=== PATIENT | female | born 1955 | race Caucasian/White ===

== ENCOUNTER → 2016-12-02 17:00 | Outpatient (CLI) | payer MEDICARE ==
[2016-10-13 12:32] VITALS: BMI 33.7
[~2016-12-02 17:00] MED LIST: ALEVE220 MG PO; BACTRIM DS TABL1 TAB PO; BENADRYL25 MG PO; BUPROPION HCL100 M1 PO; CELEXA40 MG PO; ELIQUIS2.5 MG PO; GLUCOPHAGE1000 MG PO; HYDROCODONE-APA1 TAB PO; MAXALT10 MG PO; MIRALAX17 GM PO; MUPIROCIN22 GM TOPICAL; PERCOCET 10/3251 TA1 PO; TOPROL XL25 MG PO; ZESTORETIC 20-1 EACH PO; ZOCOR20 MG PO
== END | disposition home or self-care (01) ==
LOC: D.LABREF 17:00
DX: M25.551 Pain in right hip (principal)

== ENCOUNTER 2016-12-15 11:51 | Inpatient (IN) | payer MEDICARE ==
[2016-12-11 11:10] LABS: BASOPHILS 0.2 % (0.0-2.0); EOSINOPHILS 4.5 % (0-7); HEMATOCRIT 35.1 % (36.0-48.0); HEMOGLOBIN 10.8 g/dL (12-16); MCH 28.5 pg (26.0-34.0); MCHC 30.8 g/dL (31.0-37.0); MCV 92.6 fL (80.0-100.0); MEAN PLATELET VOLUME 10.9 fL (7.4-10.4); MONOCYTES 6.6 % (2-11); NEUTROPHILS 63.7 % (40-80); RBC 3.79 10x6/uL (4.00-5.40); RDW 15.1 % (11.5-14.5); WBC 5.1 10x3/uL (4.8-10.8)
[2016-12-11 11:11] LABS: PLATELET COUNT 180 10x3/uL (130-400)
[2016-12-11 11:18] LABS: APPEARANCE SLT CLOUDY (CLEAR); BACTERIA MODERATE /hpf (NONE SEEN); BILIRUBIN NEGATIVE (NEGATIVE); COLOR YELLOW (YELLOW); GLUCOSE NEGATIVE (NEGATIVE); KETONE NEGATIVE (NEGATIVE); LEUKOCYTE ESTERASE 2+ (NEGATIVE); MUCUS <1+ /lpf (NONE SEEN); NITRITE NEGATIVE (NEGATIVE); PROTEIN NEGATIVE (NEGATIVE); RED CELLS - URINE 0-5 /hpf (0-5); UROBILINOGEN NORMAL (NORMAL); WHITE CELLS - URINE 25-50 /hpf (0-5)
[2016-12-11 11:19] LABS: ANION GAP 11.3 mmol/L (8-16); CALCIUM 9.6 mg/dL (8.5-10.1); CARBON DIOXIDE 29.5 mmol/L (21.0-32.0); CREATININE - SERUM 1.1 mg/dL (0.6-1.3); POTASSIUM - SERUM 4.8 mmol/L (3.5-5.1)
[2016-12-11 11:20] LABS: APTT 27.6 SECONDS (22.8-39.4); INR 0.95 (0.85-1.17); PROTIME 12.5 SECONDS (11.6-15.0)
[~2016-12-15] VITALS: Ht 160 cm; Wt 89.5 kg
[2016-12-15 13:46] VITALS: BP 125/77; BMI 34.9
--- NOTE | 2016-12-15 14:20 | NUR ---
[address] DAVIS, NO NEW ORDERS RECEIVED.
[2016-12-15 18:30] VITALS: BP 128/76
--- NOTE | 2016-12-15 18:30 | NUR ---
RECEIVED TO ROOM 2211 FROM RECOVERY VIA BED. PT ALERT AND ORIENTED X4. VITAL SIGNS INITIATED PER POST PROCEDURE PROTOCOL. IV TO RIGHT HAND PATENT. SCD'S AND BED ALARM ON. PROVIDED PT WITH FRESH ICE WATER AND SANDWICH TRAY. INCENTIVE SPIROMETER AND CALL LIGHT IN REACH. WILL CONTINUE WITH PLAN OF CARE.
[2016-12-15 18:36] VITALS: BP 128/76; Ht 160 cm; Wt 89.5 kg
[2016-12-15 18:45] VITALS: BP 123/80
[2016-12-15 19:00] VITALS: BP 138/95
[2016-12-15 19:15] VITALS: BP 125/86
--- NOTE | 2016-12-16 01:14 | NUR ---
RESTING WITH EYES CLOSED, RESP WITH EASE, CL IN REACH
[2016-12-16 03:42] VITALS: BP 107/63
[2016-12-16 06:44] LABS: BASOPHILS 0.1 % (0.0-2.0); EOSINOPHILS 0.3 % (0-7); HEMATOCRIT 27.2 % (36.0-48.0); HEMOGLOBIN 8.4 g/dL (12-16); IMMATURE GRANULOCYTES 0.1 % (0-5); LYMPHOCYTES 14.8 % (15-50); MCH 28.4 pg (26.0-34.0); MCHC 30.9 g/dL (31.0-37.0); MCV 91.9 fL (80.0-100.0); MONOCYTES 10.5 % (2-11); NEUTROPHILS 74.2 % (40-80); PLATELET COUNT 175 10x3/uL (130-400); RBC 2.96 10x6/uL (4.00-5.40); RDW 15.2 % (11.5-14.5); WBC 7.8 10x3/uL (4.8-10.8)
[2016-12-16 07:07] LABS: ALBUMIN 2.7 g/dL (3.4-5.0); BILIRUBIN - TOTAL 0.4 mg/dL (0.2-1.3); CALCIUM 8.2 mg/dL (8.5-10.1); CARBON DIOXIDE 25.4 mmol/L (21.0-32.0); CREATININE - SERUM 1.1 mg/dL (0.6-1.3); POTASSIUM - SERUM 4.4 mmol/L (3.5-5.1); PROTEIN - SERUM 5.5 g/dL (6.4-8.2)
--- NOTE | 2016-12-16 07:36 | NUR ---
250 mL BLOODY DRAINAGE TAKEN FROM HEMOVAC DRAIN
--- NOTE | 2016-12-16 08:05 | NUR ---
PT SEEN AND ASSESSED. NO COMPLAINTS AT PRESENT. STATES RIGHT HIP NUMB. HEMOVAC NOTED WITH SMALL AMOUNT OF BLOODY DRAINAGE AND IS COMPRESSED. DRESSING TO RIGHT HIP CLEAN AND DRY WITH NEW BAG OF ICE APPLIED. TOES ARE PINK AND WARM. OXYGEN OFF AT THIS TIME. NO SOB NOTED OR VOICED. BED ALARM FOR SAFETY AND CALL LIGHT IN REACH
[2016-12-16 08:39] VITALS: BP 98/62
--- NOTE | 2016-12-16 11:14 | OP ---
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 PROCEDURE: Revision total hip arthroplasty. SURGEON: Mehreen Davis MD. ANESTHESIA: General. INTRAOPERATIVE COMPLICATIONS: None. SUMMARY OF PATHOLOGIC FINDINGS: The patient's cup, although it had 5 screws and was a large cluster hole Tritanium cup had completely loosened and migrated proximally. The stem was in overall good condition. IMPLANTS USED: A 60 mm catholic anatomic cup with a 36-mm HL liner, 15 cc of HydroSet with multiple screws. The 36-mm +10 head and a 36-mm Zero-liner and multiple screws. OPERATIVE SUMMARY IN DETAIL: After obtaining the appropriate preoperative orthopedic surgery consent as well as anesthetic consultation, evaluation and clearance, the patient was brought to the operating room and placed on the operating table in supine position. After adequate general laryngeal mask airway was administered, the patient was placed in left lateral decubitus position. All pressure points were well padded to include down leg peroneal pad as well as axillary roll. The patient was held firmly to the operating table using the vacuum pack suction system. Right lower extremity and hip were then prepped and draped in a routine sterile fashion. Previously utilized incision was utilized again. This was taken down to the level of the IT band. At this point, a very large seroma was noted. Cultures were taken at this and lower the short hip abductors were taken down and reflected anteriorly. The hip was dislocated quite easily. The femoral head was extracted using a tamp. At this point, the cup was obviously loose. The liner was removed. Serial and sequential removal of all screws was followed by simply pulling the liner out and this have not adhered at any point. Further cultures were taken at this time, this Gram stain was negative at the time of surgery. Serial and sequential inferior and low reaming was done to a size 59. The size 60 stabilizing cup was put into place. Multiple screws inside the cup as well as using the peripheral rim screws were utilized to stabilize the cup and the area superior and posterior was then backfilled with approximately 15 cc of HydroSet. After the HydroSet was allowed to harden, the polyethylene liner was snapped into place. The whole construct felt very firm and rigid. A trial was undertaken with the proximal femoral heads and it was felt that the +10 was the most appropriate to regain her length. A +10 head was tamped into place. The hip was reduced and taken through a range of motion and found to be excellent. Intraoperative radiograph showed good position and placement of all components and screws. The wound was copiously irrigated at this multiple points. Hip OPERATIVE REPORT [id number] BHAVIN ENRIQUEZ abductors were reattached anteriorly using a transosseous #5 Ethibond followed by #2 Ethibond for IT band closure, #1 Vicryl and skin wendy. Between the vastus lateralis and the IT band, a large drain was placed. It was stitched into place. The patient had had a hematoma in the past. Sterile dressings were applied. The patient was awakened and taken to recovery in stable condition. All final needle and sponge counts were correct. TRANSINT:[id number] Voice Confirmation ID: [id number] DOCUMENT ID: [id number] SUSAN CORTEZ, MEHREEN ADAMS at 1114 CC: [id number] DICTATION DATE: 12/15/161820 MATERIAL CLERK: 12/15/16 2322 ADM IN [facility] [address] [place] [address]
[2016-12-16 12:26] VITALS: BP 103/66
[2016-12-16 13:00] VITALS: BP 103/71
--- NOTE | 2016-12-16 14:48 | NUR ---
* Is the patient Alert and Oriented? Yes 0 * How many steps to enter\exit or inside your home? Ramp 0 * PCP Dr. Antonio 0 * Pharmacy [facility] 0 * Preadmission Environment Home with Family 0 * ADLs Independent 0 * Equipment Bedside Commode Cane Rolling Walker Shower Chair Wheelchair 0 * Other Equipment Power Chair 0 * List name and contact numbers for known caregivers / representatives who currently or will assist patient after discharge: Spouse - Du [phone] 0 * Community resources currently utilized Home Health 0 * Please name any agencies selected above. [place] 0 * Additional services required to return to the preadmission environment? No 0 * Can the patient safely return to the preadmission environment? Yes 0 * Has this patient been hospitalized within the prior 30 days at any hospital? No 12/16/2016 14:49 DCP: Discharge Planning Patient Name: BHAVIN ENRIQUEZ Admission Status: Elective Accout number: [id number] Admission Date: 12-15-2016 : 1955 Admission Diagnosis: Attending: JAIME Current LOS: 1 Anticipated DC Date: 12-18-2016 Planned Disposition: Home with Home Health Primary Insurance: [facility] Discharge Planning Comments: CM met with patient to assess dc plans/needs. Patient states she lives at home with her , Du. She is currently on service with [facility] - she states physical therapy was put on hold about 2 weeks ago but nursing was still seeing her & wants to resume services at discharge. She has all necessary DME. Anticipate dc /. CM will follow. Floor Cashier: Kanwal White
[2016-12-16 16:58] VITALS: BP 97/52
[2016-12-16 19:00] VITALS: BP 107/63
--- NOTE | 2016-12-16 19:35 | NUR ---
PATIENT A&Ox3, NO APPARENT DISTRESS, PAIN LEVEL .03/25 TO RIGHT HIP. REQUESTED SCD TO BE TAKEN OFF FOR COMFORT.
--- NOTE | 2016-12-16 23:45 | NUR ---
PATIENT A&Ox3, STABLE NO APPARENT DISTRESS, 11/25 TO RIGHT HIP. PATIENT SELF ADJUSTS FOR MOST PAIN CONTROL. BED IN LOWEST LOCKED POSITION, HOB AND FOB ELEVATED, CALL LIGHT WITHIN REACH, REQUEST SCD STAY OFF.
[2016-12-17] VITALS (22 sets, daily range): BP systolic 92–137; BP diastolic 60–78
--- NOTE | 2016-12-17 00:01 | NUR ---
RESTING WITH EYES CLOSED, NO DISTRESS NOTED, R HIP DSG IN PLACE, CL IN REACH
[2016-12-17 05:27] LABS: BASOPHILS 0.2 % (0.0-2.0); EOSINOPHILS 3.9 % (0-7); HEMATOCRIT 24.9 % (36.0-48.0); HEMOGLOBIN 8.1 g/dL (12-16); IMMATURE GRANULOCYTES 0.2 % (0-5); LYMPHOCYTES 16.8 % (15-50); MCH 29.7 pg (26.0-34.0); MCHC 32.5 g/dL (31.0-37.0); MCV 91.2 fL (80.0-100.0); MEAN PLATELET VOLUME 10.9 fL (7.4-10.4); MONOCYTES 7.9 % (2-11); RBC 2.73 10x6/uL (4.00-5.40); RDW 15.6 % (11.5-14.5)
[2016-12-17 05:41] LABS: PLATELET COUNT 132 10x3/uL (130-400); WBC 5.7 10x3/uL (4.8-10.8)
[2016-12-17 05:49] LABS: ALBUMIN 2.7 g/dL (3.4-5.0); ANION GAP 11.1 mmol/L (8-16); BILIRUBIN - TOTAL 0.25 mg/dL (0.2-1.3); CALCIUM 8.4 mg/dL (8.5-10.1); CARBON DIOXIDE 27.1 mmol/L (21.0-32.0); CREATININE - SERUM 1.1 mg/dL (0.6-1.3); POTASSIUM - SERUM 4.2 mmol/L (3.5-5.1); PROTEIN - SERUM 5.7 g/dL (6.4-8.2)
--- NOTE | 2016-12-17 10:45 | NUR ---
NO COMPLAINTS OF PAIN. STATES COMFORTABLE AT A 3/10 TO RIGHT HIP. DRESSING TO RIGHT HIP CLEAN DRY AND INTACT. GOOD PEDAL PULSE. CURRENTLY UP IN CHAIR AFTER THERAPY WITH 1ST UNIT OF [facility] STARTED. WANTS TO GO HOME LATER TODAY IF POSSIBLE. CALL LIGHT IN REACH
[2016-12-17 16:10] LABS: HEMATOCRIT 29.7 % (36.0-48.0); HEMOGLOBIN 9.4 g/dL (12-16)
--- NOTE | 2016-12-17 16:58 | NUR ---
PT WITH LOW GRADE FEVER AFTER BLOOD TRANSFUSION OF99.0. ABLE TO PULL [phone] PER INCENTIVE SPIROMETRY SEVERAL TIMES TODAY INCLUDING NOW. STATES NO CONCERNS
--- NOTE | 2016-12-17 19:00 | NUR ---
ASSISTED PATIENT TO BSC AND BACK TO BED. AAOX4. RR EVEN AND UNLABORED. 0 S/S OF DISTRESS. STATES PAIN IA A 3/10. IV TO RIGHT HAND PATENT WITH NO REDNESS OR SWELLING. DRESSING TO RIGHT HIP CDI. SCD'S IN ROOM BUT OFF. SRX2. BED LOW. CALL LIGHT WITHIN REACH.
--- NOTE | 2016-12-17 20:30 | NUR ---
ASSESSMENT COMPLETE. NIGHTTIME MEDS GIVEN. NORCO GIVEN FOR PAIN. WILL REASSESS.
[2016-12-18] VITALS: BP 136/78
--- NOTE | 2016-12-18 | NUR ---
PATIENT BLEEDING A LARGE AMOUNT FROM INCISION. OUTPATIENT CLERK STATED THAT SHE FOUND PATIENT IN POSITION WITH KNEES TO CHEST. REMOVED SOILED DRESSING. ALL GABRIEL IN PLACE WITH INCISION WELL APPROXIMATED. REDRESSED INCISION AND APPLIED ICE TO HIP. INSTRUCTED PATIENT NOT TO FLEX HIP. WILL CONTINUE TO MONITOR.
--- NOTE | 2016-12-18 03:05 | NUR ---
ASSISTED PATIENT TO BSC AND BACK TO BED. NORCO GIVEN FOR PAIN OF A 4/10. DRESSING TO HIP CDI.
[2016-12-18 04:00] VITALS: BP 134/72
[2016-12-18 05:51] LABS: BASOPHILS 0.2 % (0.0-2.0); EOSINOPHILS 5.6 % (0-7); HEMATOCRIT 28.7 % (36.0-48.0); HEMOGLOBIN 9.2 g/dL (12-16); IMMATURE GRANULOCYTES 0.5 % (0-5); LYMPHOCYTES 17.7 % (15-50); MCH 28.8 pg (26.0-34.0); MCHC 32.1 g/dL (31.0-37.0); MEAN PLATELET VOLUME 10.7 fL (7.4-10.4); MONOCYTES 9.9 % (2-11); NEUTROPHILS 66.1 % (40-80); PLATELET COUNT 137 10x3/uL (130-400); RBC 3.19 10x6/uL (4.00-5.40); RDW 15.5 % (11.5-14.5); WBC 5.9 10x3/uL (4.8-10.8)
[2016-12-18 06:25] LABS: ALBUMIN 2.6 g/dL (3.4-5.0); ANION GAP 15.1 mmol/L (8-16); BILIRUBIN - TOTAL 0.5 mg/dL (0.2-1.3); CALCIUM 8.5 mg/dL (8.5-10.1); CARBON DIOXIDE 27.1 mmol/L (21.0-32.0); CREATININE - SERUM 0.9 mg/dL (0.6-1.3); POTASSIUM - SERUM 4.2 mmol/L (3.5-5.1); PROTEIN - SERUM 5.2 g/dL (6.4-8.2)
--- NOTE | 2016-12-18 07:20 | NUR ---
PATIENT IS RESTING QUIETLY WITH EYES CLOSED. NO SIGNS OF DISTRESS NOTED. BED IN LOWEST POSITION, CALL LIGHT IN REACH. BED RAILS UP X'S 2. BED ALARM ON.
[2016-12-18 08:08] VITALS: BP 129/78
[2016-12-18] MEDS ORDERED: PERCOCET 10/3251 TA1 PO (08:26)
[2016-12-18] MEDS ORDERED: ELIQUIS2.5 MG PO (08:26)
--- NOTE | 2016-12-18 08:56 | NUR ---
12/18/2016 8:54 DCP: Discharge Planning Patient Name: BHAVIN ENRIQUEZ Encounter No: [id number] : 1955 Primary Insurance: [facility] Anticipated DC Date: 12-18-2016 Planned Disposition: Home with Home Health External Planned Provider: [facility] follow-up note: DC order rec'd. Patient and family in agreement with discharge plan. No changes to plan. Notified Fatoumata @ [facility] of DC.
--- NOTE | 2016-12-18 08:56 | NUR ---
PT SITTING UP IN THE CHAIR
--- NOTE | 2016-12-18 10:22 | NUR ---
PATIENT'S DRESSING HAS A LARGE AMOUNT OF BLOOD ON IT, REMOVED, SMALL AMOUNT OF BLOOD DRAINING FROM MID INCISION. APPLIED 4X4 GAUZED, TAPED WITH CLOTH TAPE. CALLED 'S OFFICE TO SPEAK WITH DUANE ABOUT D/C DRESSING. PREPRINT ANALYST STATED SHE IS WITH A PATIENT AND TOOK MY NAME AND NUMBER TO HAVE HER CALL ME WHEN SHE IS DONE.
--- NOTE | 2016-12-18 10:30 | NUR ---
SPOKE WITH DUANE, SHE STATED "PUT A PRESSURE DRESSING ON IT, AND I WILL PUT IN AN ORDER FOR HOME HEALTH TO CHANGE THE DRESSING DAILY."
--- NOTE | 2016-12-18 10:35 | NUR ---
APPLIED A PRESSURE DRESSING TO RIGHT HIP, D/C IV WITH CATH INTACT. DISCHARGE INSTRUCTIONS COMPLETED WITH PATIENT. PATIENT DENIES QUESTIONS AND VERBALIZED UNDERSTANDING. ASSISTED PATIENT GETTING DRESSED.
--- NOTE | 2016-12-18 11:56 | NUR ---
PATIENT LEFT VIA WHEELCHAIR WITH VOLUNTEER STAFF AND SON.
== END 2016-12-18 12:00 | disposition home health service (06) | DRG 467 ==
LOC: D.SDCHOLD 11:51 → D.MS 11:51 → D.SDCHOLD 13:15 → D.MS 14:33 → D.SDCHOLD 15:45 → D.MS 12-18 12:00
PROVIDERS: Family Medicine; ADMIT Orthopaedic Surgery
PROC: 0SP909Z Removal of Liner from Right Hip Joint, Open Approach (ICD-10-PCS; 2016-12-15)
PROC: 0SUA09Z Supplement Right Hip Joint, Acetabular Surface with Liner, Open Approach (ICD-10-PCS; 2016-12-15)
PROC: 0SP90JZ Removal of Synthetic Substitute from Right Hip Joint, Open Approach (ICD-10-PCS; 2016-12-15)
PROC: 0SR90JZ Replacement of Right Hip Joint with Synthetic Substitute, Open Approach (ICD-10-PCS; principal; 2016-12-15 14:30)
DX: T84.030A Mechanical loosening of internal right hip prosthetic joint, initial encounter (principal); D62 Acute posthemorrhagic anemia; M96.842 Postprocedural seroma of a musculoskeletal structure following a musculoskeletal system procedure; Y83.9 Surgical procedure, unspecified as the cause of abnormal reaction of the patient, or of later complication, without mention of misadventure at the time of the procedure; I10 Essential (primary) hypertension; E78.5 Hyperlipidemia, unspecified; E11.9 Type 2 diabetes mellitus without complications

== ENCOUNTER → 2017-02-04 12:49 | Outpatient (CLI) | payer MEDICARE ==
[2016-12-15 18:36] VITALS: BMI 34.9
[~2017-02-04 12:49] MED LIST changes: +VANCOMYCIN 1 GM/1 G1 IV
[2017-02-14 18:07] LABS: AEROBE ID Final report (())
== END | disposition home or self-care (01) ==
LOC: D.LABREF 12:49
PROVIDERS: Orthopaedic Surgery
DX: L02.415 Cutaneous abscess of right lower limb (principal)

== ENCOUNTER 2017-02-23 05:14 | Inpatient (IN) | payer MEDICARE ==
[2017-02-20 08:56] LABS: HEMATOCRIT 32.5 % (36.0-48.0); HEMOGLOBIN 9.9 g/dL (12-16); MCHC 30.5 g/dL (31.0-37.0); MCV 88.8 fL (80.0-100.0); MEAN PLATELET VOLUME 9.7 fL (7.4-10.4); RBC 3.66 10x6/uL (4.00-5.40); RDW 15.1 % (11.5-14.5); WBC 5.2 10x3/uL (4.8-10.8)
[2017-02-20 09:07] LABS: ANION GAP 16.3 mmol/L (8-16); CALCIUM 9.6 mg/dL (8.5-10.1); CARBON DIOXIDE 23.8 mmol/L (21.0-32.0); CREATININE - SERUM 1.2 mg/dL (0.6-1.3); POTASSIUM - SERUM 5.1 mmol/L (3.5-5.1)
[~2017-02-23] VITALS: Ht 160 cm; Wt 83.6 kg
[2017-02-23] VITALS (14 sets, daily range): BP systolic 78–117; BP diastolic 48–79; Ht 160 cm; Wt 83.6 kg
[~2017-02-23 05:14] MED LIST changes: -VANCOMYCIN 1 GM/1 G1 IV
--- NOTE | 2017-02-23 12:02 | NUR ---
PAGED 'S NURSE PRACTIONER TO NOTIFY HER OF PATIENT'S BP
--- NOTE | 2017-02-23 15:05 | NUR ---
Patient Name: BHAVIN ENRIQUEZ Admission Status: Elective Accout number: [id number] Admission Date: 02-23-2017 : 1955 Admission Diagnosis: Attending: JAIME Current LOS: 1 Anticipated DC Date: 02-27-2017 Planned Disposition: Home with Home Health Primary Insurance: [facility] Discharge Planning Comments: CM MET WITH PATIENT REGARDING D/C NEEDS AND PLANS. PATIENT STATED SHE LIVES WITH HER SPOUSE (YEYO) BUT HE IS IN THE HOSPITAL AT THIS TIME. PATIENT IS GOING TO GO TO HER DAUGHTERS HOUSE AT DISCHARGE (GEORGI CHU). PATIENT STATED SHE IS INDEPENDENT WITH HER CARE AND HAS A WALKER, WHEELCHAIR, POWER CHAIR, GLUCOMETER, BS COMMODE, AND SHOWER CHAIR AT HOME. PATIENTS PCP IS DR. WHITE AND PHARMACY IS [facility] AT THE [facility]. PATIENT IS CURRENT WITH [facility]. CM WILL CONTINUE TO FOLLOW PATIENT WITH D/C NEEDS AND PLANS. PCP DR. CINDY BRONSON AT [facility]- [phone] GEORGI CHU (DAUGHTER) [phone] OR [phone] Interior Design Faculty Member: Alma Rocha Is the patient Alert and Oriented? Yes 0 * How many steps to enter\exit or inside your home? RAMP 0 * PCP DR. WHITE 0 * Pharmacy [facility] 0 * Preadmission Environment Home with Family 0 * ADLs Independent 0 * Equipment Bedside Commode Glucometer Shower Chair Walker Wheelchair 0 * Other Equipment POWER WHEELCHAIR, 0 * List name and contact numbers for known caregivers / representatives who currently or will assist patient after discharge: GEORGI CHU (DAUGHTER) [phone] [place] [phone] PATIENTS YEYO IN HOSPITAL 0 * Community resources currently utilized Home Health 0 * Please name any agencies selected above. [facility] [phone] 0 * Additional services required to return to the preadmission environment? Yes 0 * Can the patient safely return to the preadmission environment? Yes 0 * Has this patient been hospitalized within the prior 30 days at any hospital? No 0 Grand Total: 0
--- NOTE | 2017-02-23 19:20 | NUR ---
RECIEVED SHIFT REPORT. PT IS LYING IN BED. ALERT AND ORIENTED AND ABLE TO VERBALIZE NEEDS. IV IS PATENT AND FLUIDS ARE RUNNING PER ORDER. PT IS ON BEDREST POST OP BUT IS ABLE TO TURN SELF IN BED FOR COMFORT AND SKIN CARE. PT STATES PAIN IS 3/10. DRESSING TO RIGHT HIP C/D/I WITH WOUND VAC PATENT. NO NEEDS ARE VERBALIZED AT THIS TIME. WILL CONTINUE TO MONITOR. SIDE RAILS ARE UP X 2. BED IS IN LOWEST POSITION. CALL LIGHT IS WITHIN REACH.
--- NOTE | 2017-02-23 21:08 | NUR ---
SHIFT ASSESSMENT COMPLETED. NIGHT MEDS GIVEN WITH NO PROBLEMS. PT C/O OF PAIN 01/23. ADMINISTERED PRESCRIBED PRN NORCO PER ORDER. DENIES FURTHER NEEDS. WILL MONITOR. SIDE RAILS X 2. BED LOW. CALL LIGHT IN REACH.
[2017-02-24] VITALS: BP 100/56
[2017-02-24 04:00] VITALS: BP 101/62
[2017-02-24 05:29] LABS: ANION GAP 13.1 mmol/L (8-16); CALCIUM 8.6 mg/dL (8.5-10.1); CARBON DIOXIDE 23.1 mmol/L (21.0-32.0); POTASSIUM - SERUM 4.2 mmol/L (3.5-5.1)
[2017-02-24 05:53] LABS: HEMATOCRIT 26.4 % (36.0-48.0); HEMOGLOBIN 8.2 g/dL (12-16); MCH 27.4 pg (26.0-34.0); MCHC 31.1 g/dL (31.0-37.0); MCV 88.3 fL (80.0-100.0); RBC 2.99 10x6/uL (4.00-5.40); RDW 15.2 % (11.5-14.5); WBC 4.3 10x3/uL (4.8-10.8)
--- NOTE | 2017-02-24 07:20 | NUR ---
PATIENT ALERT IN HIGH [place] POSITION WITH ELECTRONIC TABLET AT BEDSIDE. NO SIGNS OF DISTRESS NOTED. SIDE RAILS UP X2. BED IN LOW POSITION. CALL LIGHT IN REACH.
[2017-02-24 07:38] VITALS: BP 113/72
--- NOTE | 2017-02-24 07:40 | NUR ---
SITTING IN BED PLAYING A GAME ON TABLET, NO DISTRESS NOTED, REQUEST BEDSIDE COMMODE AND CHAIR, BED LOWEST POSITION, CALL LIGHT IN REACH, WILL CONTINUE TO MONITOR
--- NOTE | 2017-02-24 08:57 | NUR ---
02/24/2017 8:54 DCP: Discharge Planning Home Wound Vac order faxed to Sandhya at [facility]. CM will follow.
[2017-02-24 09:10] LABS: HEMOGLOBIN A1C 6.4 % (4.8-6.0)
[2017-02-24 11:54] VITALS: BP 102/75
[2017-02-24 15:49] VITALS: BP 108/60
[2017-02-24 20:00] VITALS: BP 113/72
[2017-02-25 04:00] VITALS: BP 118/72
--- NOTE | 2017-02-25 07:35 | NUR ---
CALLED PHARMACY AND SPOKE WITH RACIEL PHARMACIST ABOUT PATIENT'S VANCOMYOCIN. HOMERO RN STATED SHE SPOKE WITH AND SHE SAID THE PATIENT ONLY NEEDS 12 DOSES TOTAL OF THE VANCOMYOCIN AND THE 2 DOSES THE PATIENT RECIEVED FROM 'S ORDER WILL COUNT.
--- NOTE | 2017-02-25 08:20 | NUR ---
02/25/2017 8:19 DCP: Discharge Planning Signed Wound Vac order faxed to Sandhya @ [facility]. Waiting approval. CM will follow.
[2017-02-25 08:33] LABS: HEMATOCRIT 27.4 % (36.0-48.0); HEMOGLOBIN 8.7 g/dL (12-16); MCH 27.7 pg (26.0-34.0); MCHC 31.8 g/dL (31.0-37.0); MCV 87.3 fL (80.0-100.0); MEAN PLATELET VOLUME 9.7 fL (7.4-10.4); RBC 3.14 10x6/uL (4.00-5.40); WBC 3.8 10x3/uL (4.8-10.8)
[2017-02-25 08:53] LABS: ANION GAP 13.5 mmol/L (8-16); CALCIUM 8.7 mg/dL (8.5-10.1); CARBON DIOXIDE 23.9 mmol/L (21.0-32.0); CREATININE - SERUM 0.9 mg/dL (0.6-1.3); POTASSIUM - SERUM 4.4 mmol/L (3.5-5.1)
[2017-02-25 09:00] VITALS: BP 113/77
--- NOTE | 2017-02-25 10:31 | NUR ---
WOUND CARE: CALLED BY PRIMARY NURSE PIERCE ABOUT WOUND VAC MACHINE ALARMING (BLOCKAGE). ON ASSESSMENT NOTED NO CONTINUOUS PRESSURE WAS BEING ACHIEVED. REMOVED TRAC PAD AND DRAPE. A STRINGY BLOOD CLOT WAS NOTED AT TRAC PAD. REPLACED DRAPE AND ATTACHED NEW TRAC PAD. -125MMHG WAS IMMEDIATELY ACHIEVED AND VAC STOPPED ALARMING. I LEFT THE VAZ SPONGE THAT IS IN WOUND BED IN PLACE/ONLY REPLACED DRAPE AND TRAC PAD. DR. DAVIS IS TO CHANGE VAC DRESSING TOMORROW IN THE OR. WILL CONTINUE TO MONITOR.
[2017-02-25 13:34] VITALS: BP 111/76
--- NOTE | 2017-02-25 14:55 | NUR ---
PATIENT STATED SHE WANTS TO TALK TO AGAIN BEFORE AGREEING TO GET A PICC LINE PLACED.
--- NOTE | 2017-02-25 19:00 | NUR ---
BEDSIDE REPORT RECEIVED AND CARE OF PT ASSUMED. PT LYING IN SUPINE POSITION WATCHING TV. IV IN LEFT FA PATENT WITH NS INFUSING AT KVO. WOUND VAC IN PLACE ON RIGHT HIP, WELL COMPRESSED WITH NO OCCLUSION OR LEAK ALARMS. WILL MONITOR CLOSELY FOR NEEDS. CALL LIGHT WITHIN REACH.
[2017-02-25 20:00] VITALS: BP 127/78
--- NOTE | 2017-02-25 20:18 | NUR ---
HS MEDICATIONS GIVEN. FSBS 116 THIS CHECK REQUIRING NO COVERAGE PER SLIDING SCALE.
--- NOTE | 2017-02-25 20:30 | NUR ---
HS SNACK GIVEN: 2% MILK, GONZALES CRACKERS, AND SHEBERT.
[2017-02-26] VITALS (15 sets, daily range): BP systolic 89–126; BP diastolic 46–78
--- NOTE | 2017-02-26 01:15 | NUR ---
PT RESTING QUIETLY ON LEFT SIDE WITH UNLABORED BREATHING. WILL CONTINUE TO MONITOR FOR NEEDS.
--- NOTE | 2017-02-26 08:26 | NUR ---
02/26/2017 8:25 DCP: Discharge Planning Home IV Abx order faxed to Esperanza @ [facility]. Waiting return call.
--- NOTE | 2017-02-26 08:45 | NUR ---
PT SEEN AND ASSESSED. NPO FOR SURG THIS AFTERNOON. CONSENTS SIGNED. WOUND VAC NOTED RIGHT HIP WITH NO DRAINAGE NOTED. NO REDDNESS NOTED TO RIGHT HIP. ON ELIQUIS FOR DVT COVERAGE. CALL LIGHT IN REACH
--- NOTE | 2017-02-26 13:19 | NUR ---
02/26/2017 13:17 DCP: Discharge Planning Rec'd call from Sandhya with [facility] - home vac has been approved. Rec'd call from Archie with [facility] - they have ran patients insurance benefits for Daptomycin & patients OOP expensive is $8K. Notified Dr. Gomez - waiting additional orders. CM will follow.
--- NOTE | 2017-02-26 14:01 | NUR ---
PT TABLET WALLET AND SILVER COLORED RING PLACED IN BLUE BAG IN CLOSET AND COVERED WITH TOWEL
--- NOTE | 2017-02-26 15:30 | NUR ---
02/26/2017 15:29 DCP: Discharge Planning Home IV Vanc order rec'd - faxed to Archie @ [place]. Waiting insurance authorization.
--- NOTE | 2017-02-26 16:32 | NUR ---
TO SURG PER BED WITH WOUND VAC
--- NOTE | 2017-02-26 17:39 | OP ---
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 PROCEDURE: Excisional debridement of the right hip to include skin, subcutaneous tissue, portions of fat, fascia, muscle and bone. SURGEON: Mehreen Davis MD ANESTHESIA: General. INTRAOPERATIVE COMPLICATIONS: None. SUMMARY OF PATHOLOGIC FINDINGS: The tract went completely to the acetabulum and hip joint itself. OPERATIVE SUMMARY IN DETAIL: After obtaining the appropriate preoperative orthopedic surgery consent as well as anesthetic consultation, evaluation and clearance, the patient was brought to the operating room and placed on the operating table in supine position. After general laryngeal mask was administered, placed in left lateral decubitus position. All pressure points were well padded to include down leg peroneal nerve pad as well as axillary roll. The patient was held firmly to the operating room table using the vacuum suction system. Right upper extremity was then prepped and draped in a routine sterile fashion. Although the aperture was very small and was elongated to reveal a superficial pouch that measured approximately 10 cm x 5 cm x 3 cm deep. The anterior lateral recess, the wound did track normally to the patient's hip joint itself. Copious curettage, knife and rongeur, excision was carried out down to the level of the femoral neck. Curettage of the femoral neck itself was attempted to see if the bone had become soft, it had not. At this point, pulsatile lavage was carried out to completely irrigate the hip joint down to itself and one good bleeding bed was applied, wound VAC was placed. Note, two deep sponges were cut and placed down to the tract, followed by superficial sponge. Wound VAC was set at 125 mm of continuous medium suction. Good seal was achieved. The patient was awakened and taken to recovery room in stable condition. All final needle and sponge counts were correct. TRANSINT:[id number] Voice Confirmation ID: [id number] DOCUMENT ID: [id number] MEHREEN DAVIS MD at 1733 CC: [id number] DICTATION DATE: 02/23/17 1011 BEVELLER OPERATOR: 02/23/17 1418 ADM IN [facility] [address] [place] [address]
--- NOTE | 2017-02-26 18:40 | NUR ---
1814-RETURNED FROM SURG PER BED. WOUND VAC RECONNECTED TO BATTERY PACK. RIGHT HIP INCISION CLEAN DRY AND INTACT WITH WOUND VAC SPONGE IN PLACE. NO COMPLAINTS AT PRESENT
--- NOTE | 2017-02-26 19:00 | NUR ---
BEDSIDE REPORT RECEIVED AND CARE OF PT ASSUMED. PT LYING IN SUPINE POSITION WITH EYES CLOSED. ARROUSES TO VOICE. DENIES PAIN AT THIS TIME. WOUND VAC ON RIGHT HIP COMPRESSED, CLEAN AND DRY, WITH NO OCCLUSION OR LEAKAGE ALARMS. IV IN LEFT FA PATENT WITH 1/2 NS INFUSING AT 50 ML / HR. WILL MONITOR CLOSLEY FOR NEEDS. CALL LIGHT WITHIN REACH.
--- NOTE | 2017-02-26 22:00 | NUR ---
HS DIABETIC SNACK GIVEN: PUDDING, 2% MILK AND GONZALES CRACKERS. PT CONSUMED 100%.
--- NOTE | 2017-02-26 22:31 | NUR ---
HS MEDICATIONS GIVEN TO INCLUDE PERCOCET PER PRN ORDER, PER REQUEST FOR PAIN. SIDE RAILS UP X2 FOR SAFETY.
--- NOTE | 2017-02-26 23:23 | NUR ---
PT RESTING ON LEFT SIDE WITH EYES CLOSED AND UNLABORED BREATHING. WILL CONTINUE TO MONITOR FOR NEEDS.
--- NOTE | 2017-02-27 07:00 | NUR ---
PT WAS RECEIVED AT THE BEGINING OF THIS SHIFT IN BED AWAKE AND ORIENTED TO PERSON AND PLACE. NO SIGNS OF DISCOMFORT OR DISTRESS. VITAL SIGNS; TEMP. 97.7, PULSE 80, RESP. 20, B/P 115/74, O2 SAT. 96%. IV TO LEFT FOREARM IS PATENT WITH 1/2 NORMAL SALINE GOING AT 50CC/HR. PT IS TO GET A PICC LINE TODAY. FRANSICO CONTINUE TO MONITOR AND ASSIST PRN WITH ADL'S.
[2017-02-27 08:18] VITALS: BP 115/74
[2017-02-27 09:40] LABS: BASOPHILS 0.4 % (0.0-2.0); HEMATOCRIT 30.1 % (36.0-48.0); HEMOGLOBIN 9.5 g/dL (12-16); IMMATURE GRANULOCYTES 0.2 % (0-5); LYMPHOCYTES 21.8 % (15-50); MCH 27.5 pg (26.0-34.0); MCHC 31.6 g/dL (31.0-37.0); MCV 87.2 fL (80.0-100.0); MONOCYTES 8.8 % (2-11); NEUTROPHILS 64.8 % (40-80); PLATELET COUNT 203 10x3/uL (130-400); RBC 3.45 10x6/uL (4.00-5.40); RDW 15.1 % (11.5-14.5)
[2017-02-27] MEDS ORDERED: VANCOMYCIN 1 GM/1 G1 IV (09:47)
[2017-02-27] MEDS ORDERED: PERCOCET 10/3251 TA1 PO (09:47)
[2017-02-27] MEDS ORDERED: ELIQUIS2.5 MG PO (09:48)
[2017-02-27 09:50] LABS: ANION GAP 13.3 mmol/L (8-16); CALCIUM 8.7 mg/dL (8.5-10.1); CARBON DIOXIDE 24.9 mmol/L (21.0-32.0); POTASSIUM - SERUM 4.2 mmol/L (3.5-5.1)
[2017-02-27 09:51] LABS: C-REACTIVE PROTEIN 0.2 mg/dL (0.0-0.9)
--- NOTE | 2017-02-27 10:04 | NUR ---
02/27/2017 9:51 DCP: Discharge Planning Rec'd call from Archie with [facility] - Patient will have a copay of $148 for IV Vanc (entire therapy thru 04/05) & $9 per day for supplies. Notified Archie of planned dc for this afternoon. [facility] will coordinate delivery/first dose administration with [facility] for 1800.
[2017-02-27 10:56] LABS: ERYTHROCYTE SEDIMENTATION RATE 62 mm/hr (0-30)
[2017-02-27 13:02] VITALS: BP 115/65; BP 116/71
--- NOTE | 2017-02-27 13:26 | NUR ---
CM REASSESSMENT NOTE: PATIENT IS DISCHARGING TODAY HOME WITH HOME HEALTH-DAUGHTER IS DRIVING HER. CM REC. SEVERAL CALLS FROM [facility] AND THEY HAD QUESTIONS REGARDING PATIENTS FAMILY BEING ABLE TO BE TAUGHT HOW TO DO THE IV MEDICATION. PATIENT STATED SHE HAD A DAUGHTER, DAUGHTER IN LAW TO BE, AND NIECE THAT LIVES RIGHT BESIDE HER. [facility] THEN CALLED BACK AND STATED THEY WOULD NOT BE SERVICING PATIENT. PATIENT WAS UPSET AND CALLED [facility] AND THEY STILL DENIED HER EVEN THOUGH SHE IS CURRENT WITH THEM. PATIENT THEN CALLED INSURANCE COMPANY AND TALKED WITH THEM. CM HAD SPOKE WITH [facility] THEY COULD NOT DO IT. CM SPOKE WITH [facility] AND THEY CALLED CM BACK AND STATED THEY WOULD ACCEPT PATIENT. [facility] [place] WAS NOTIFIED ([facility]) AND CLINICALS AND ORDERS SENT TO [facility]. PATIENT HAS A WOUND VAC THAT IS NOT DUE FOR CHANGE UNTIL THURSDAY AND [facility] IS AWARE OF THAT ALSO. WILL CONTINUE TO FOLLOW PATIENT WITH D/C NEEDS AND PLANS. [facility]- [phone] OLYMPIADCOKO-[phone]
--- NOTE | 2017-02-27 13:30 | NUR ---
CM REASSESSMENT NOTE: IMM SERVED AND SIGNED. YAEL FOR [facility] SIGNED
--- NOTE | 2017-02-27 13:59 | NUR ---
PT HAD A PICC LINE PLACED TODAY. PT IS STABLE AND RESTING WITH EYES CLOSED. CALL LIGHT IS IN REACH.
--- NOTE | 2017-02-27 15:11 | NUR ---
PT IS BEING DISCHARGED TO HOME. STABLE CONDITION OBSERVED. DISCHARGE PAPERWORK SIGNED AND WILL WHEEL PT DOWN TO AWAITING VEHICLE WHEN SHE LEAVES.
[2017-03-01 17:07] LABS: AEROBE ID Final report (())
== END 2017-02-27 15:13 | disposition home health service (06) | DRG 498 ==
LOC: D.MS 05:14 → D.SDCHOLD 05:14 → D.MS 10:41 → D.SDCHOLD 10:45 → D.OPS 15:00 → EDSTATUS 15:00 → D.MS 02-27 15:13
PROVIDERS: Anesthesiology; Student in an Organized Health Care Education/Training Program; ADMIT Orthopaedic Surgery
PROC: 0QB70ZZ Excision of Left Upper Femur, Open Approach (ICD-10-PCS; principal; 2017-02-23 09:00)
PROC: 02HV33Z Insertion of Infusion Device into Superior Vena Cava, Percutaneous Approach (ICD-10-PCS; 2017-02-27)
PROC: B548ZZA Ultrasonography of Superior Vena Cava, Guidance (ICD-10-PCS; 2017-02-27)
DX: T84.51XA Infection and inflammatory reaction due to internal right hip prosthesis, initial encounter (principal); D62 Acute posthemorrhagic anemia; E11.9 Type 2 diabetes mellitus without complications; Z79.84 Long term (current) use of oral hypoglycemic drugs; E66.9 Obesity, unspecified; E78.5 Hyperlipidemia, unspecified; G43.909 Migraine, unspecified, not intractable, without status migrainosus; Z96.641 Presence of right artificial hip joint; Z68.32 Body mass index [BMI] 32.0-32.9, adult; I10 Essential (primary) hypertension

== ENCOUNTER → 2017-03-02 14:52 | Outpatient (CLI) | payer MEDICARE ==
[2017-02-23 17:26] VITALS: BMI 32.6
[~2017-03-02 14:52] MED LIST changes: +VANCOMYCIN 1 GM/1 G1 IV
[2017-03-02 15:03] LABS: BASOPHILS 0.2 % (0.0-2.0); EOSINOPHILS 7.9 % (0-7); HEMATOCRIT 30.8 % (36.0-48.0); HEMOGLOBIN 9.5 g/dL (12-16); IMMATURE GRANULOCYTES 0.2 % (0-5); LYMPHOCYTES 16.5 % (15-50); MCH 27.5 pg (26.0-34.0); MCHC 30.8 g/dL (31.0-37.0); MEAN PLATELET VOLUME 10.2 fL (7.4-10.4); MONOCYTES 8.8 % (2-11); NEUTROPHILS 66.4 % (40-80); PLATELET COUNT 203 10x3/uL (130-400); RBC 3.46 10x6/uL (4.00-5.40); RDW 15.8 % (11.5-14.5); WBC 4.8 10x3/uL (4.8-10.8)
[2017-03-02 15:22] LABS: CREATININE - SERUM 1.3 mg/dL (0.6-1.3); VANCOMYCIN - TROUGH 27.5 ug/mL (10.0-20.0)
[2017-03-02 17:45] LABS: ERYTHROCYTE SEDIMENTATION RATE 49 mm/hr (0-30)
== END | disposition home or self-care (01) ==
LOC: D.LABREF 14:52
PROVIDERS: Student in an Organized Health Care Education/Training Program
DX: T81.4XXA Infection following a procedure, initial encounter (principal); S72.002A Fracture of unspecified part of neck of left femur, initial encounter for closed fracture; S72.032 Displaced midcervical fracture of left femur; X58.XXXA Exposure to other specified factors, initial encounter; Y93.89 Activity, other specified; Y92.89 Other specified places as the place of occurrence of the external cause

== ENCOUNTER → 2017-03-12 11:22 | Outpatient (CLI) | payer MEDICARE ==
[2017-02-23 17:26] VITALS: BMI 32.6
[2017-03-12 13:31] LABS: CREATININE - SERUM 1.4 mg/dL (0.6-1.3); VANCOMYCIN - TROUGH 21.5 ug/mL (10.0-20.0)
== END | disposition home or self-care (01) ==
LOC: D.LABREF 11:22
PROVIDERS: Student in an Organized Health Care Education/Training Program
DX: T81.4XXA Infection following a procedure, initial encounter (principal)

== ENCOUNTER → 2017-03-17 13:46 | Outpatient (CLI) | payer MEDICARE ==
[2017-02-23 17:26] VITALS: BMI 32.6
[2017-03-17 14:24] LABS: CREATININE - SERUM 1.2 mg/dL (0.6-1.3); VANCOMYCIN - TROUGH 9.5 ug/mL (10.0-20.0)
== END | disposition home or self-care (01) ==
LOC: D.LABREF 13:46
PROVIDERS: Student in an Organized Health Care Education/Training Program
DX: T81.4XXA Infection following a procedure, initial encounter (principal); Z79.2 Long term (current) use of antibiotics; Z45.2 Encounter for adjustment and management of vascular access device

== ENCOUNTER → 2017-03-24 13:16 | Outpatient (CLI) | payer MEDICARE ==
[2017-02-23 17:26] VITALS: BMI 32.6
[2017-03-24 15:26] LABS: ERYTHROCYTE SEDIMENTATION RATE 48 mm/hr (0-30)
== END | disposition home or self-care (01) ==
LOC: D.LABREF 13:16
PROVIDERS: Student in an Organized Health Care Education/Training Program
DX: T84.51XA Infection and inflammatory reaction due to internal right hip prosthesis, initial encounter (principal); Z51.81 Encounter for therapeutic drug level monitoring; Z79.2 Long term (current) use of antibiotics

== ENCOUNTER → 2017-05-05 13:06 | Outpatient (CLI) | payer MEDICARE ==
[2017-02-23 17:26] VITALS: BMI 32.6
[2017-05-05 14:37] LABS: BASOPHILS 0.2 % (0-2); EOSINOPHILS 1.9 % (0-7); HEMATOCRIT 31.3 % (36.0-48.0); HEMOGLOBIN 9.5 g/dL (12-16); IMMATURE GRANULOCYTES 0.3 % (0-5); LYMPHOCYTES 17.6 % (15-50); MCH 26.5 pg (26.0-34.0); MCHC 30.4 g/dL (31.0-37.0); MCV 87.2 fL (80.0-100.0); MEAN PLATELET VOLUME 10.2 fL (7.4-10.4); MONOCYTES 7.5 % (2-11); NEUTROPHILS 72.5 % (40-80); RBC 3.59 10x6/uL (4.00-5.40); RDW 16.3 % (11.5-14.5); WBC 5.8 10x3/uL (4.8-10.8)
[2017-05-05 14:47] LABS: PLATELET COUNT 267 10x3/uL (130-400)
[2017-05-05 14:55] LABS: ALBUMIN 2.7 g/dL (3.4-5.0); ANION GAP 16.2 mmol/L (8-16); BILIRUBIN - TOTAL 0.11 mg/dL (0.2-1.3); C-REACTIVE PROTEIN 2.3 mg/dL (0.0-0.9); CALCIUM 8.9 mg/dL (8.5-10.1); CARBON DIOXIDE 25.9 mmol/L (21.0-32.0); CREATININE - SERUM 1.1 mg/dL (0.6-1.3); POTASSIUM - SERUM 4.1 mmol/L (3.5-5.1); PROTEIN - SERUM 6.7 g/dL (6.4-8.2)
[2017-05-05 15:54] LABS: ERYTHROCYTE SEDIMENTATION RATE 79 mm/hr (0-30)
== END | disposition home or self-care (01) ==
LOC: D.LABREF 13:06
PROVIDERS: Student in an Organized Health Care Education/Training Program
DX: T84.50XD Infection and inflammatory reaction due to unspecified internal joint prosthesis, subsequent encounter (principal); Z79.2 Long term (current) use of antibiotics

== ENCOUNTER 2017-05-12 10:28 | Inpatient (IN) | payer MEDICARE ==
[~2017-05-12] VITALS: Ht 160 cm; Wt 72.1 kg
[2017-05-12] MEDS ORDERED: HYDROCODONE-APA1 TAB PO (11:09)
[2017-05-12] MEDS ORDERED: COLACE100 MG PO (11:11)
[2017-05-12] MEDS ORDERED: AMRIX30 MG PO (11:12)
[2017-05-12] MEDS ORDERED: ADVIL100 M1 PO (11:14)
[2017-05-12 11:16] VITALS: BP 105/70; BMI 28.2
[2017-05-12 11:52] LABS: BASOPHILS 0.3 % (0-2); EOSINOPHILS 1.9 % (0-7); HEMATOCRIT 32.2 % (36.0-48.0); HEMOGLOBIN 9.8 g/dL (12-16); IMMATURE GRANULOCYTES 0.3 % (0-5); MCH 26.1 pg (26.0-34.0); MCHC 30.4 g/dL (31.0-37.0); MCV 85.9 fL (80.0-100.0); MONOCYTES 9.4 % (2-11); NEUTROPHILS 72.1 % (40-80); PLATELET COUNT 255 10x3/uL (130-400); RBC 3.75 10x6/uL (4.00-5.40); RDW 16.1 % (11.5-14.5); WBC 5.9 10x3/uL (4.8-10.8)
[2017-05-12 12:15] LABS: ALBUMIN 2.6 g/dL (3.4-5.0); BILIRUBIN - TOTAL 0.13 mg/dL (0.2-1.3); C-REACTIVE PROTEIN 2.4 mg/dL (0.0-0.9); CALCIUM 9.4 mg/dL (8.5-10.1); CARBON DIOXIDE 23.3 mmol/L (21.0-32.0); CREATININE - SERUM 1.2 mg/dL (0.6-1.3); POTASSIUM - SERUM 4.3 mmol/L (3.5-5.1); PROTEIN - SERUM 7.4 g/dL (6.4-8.2)
[2017-05-12 13:57] LABS: ERYTHROCYTE SEDIMENTATION RATE 104 mm/hr (0-30)
[2017-05-12 16:06] VITALS: BP 103/62
--- NOTE | 2017-05-12 19:40 | NUR ---
RECIEVED SHIFT REPORT. PT IS LYING IN BED. ALERT AND ORIENTED AND ABLE TO VERBALIZE NEEDS. IV IS PATENT AND SALINE LOC AT THIS TIME. PT IS AMBULATORY WITH ASSISTANCE OF WALKER. PT DENIES ANY PAIN AT THIS TIME. DRESSING TO RIGHT HIP C/D/I. NO NEEDS ARE VERBALIZED AT THIS TIME. WILL CONTINUE TO MONITOR. SIDE RAILS ARE UP X 2. BED IS IN LOWEST POSITION. CALL LIGHT IS WITHIN REACH.
[2017-05-12 20:00] VITALS: BP 108/67
--- NOTE | 2017-05-12 21:23 | NUR ---
SHIFT ASSESSMENT COMPLETED. FLUIDS HUNG PER ORDER. PT C/O PAIN 02/23. ADMINISTERED PRESCRIBED PRN NORCO PER ORDER. DENIES FURTHER NEEDS. WILL MONITOR. SIDE RAILS X 2. BED LOW. CALL LIGHT IN REACH.
[2017-05-13] VITALS: BP 105/70
[2017-05-13 04:00] VITALS: BP 110/66
--- NOTE | 2017-05-13 07:30 | NUR ---
PATIENT RECEIVED SITTING UP ON SIDE OF BED ALERT. NO SIGNS OF DISTRESS NOTED. DENIES NEEDS. SIDE RAILS UP X2. BED IN LOW POSITION. CALL LIGHT IN REACH.
--- NOTE | 2017-05-13 08:18 | NUR ---
PATIENT ALERT IN BED EATING BREAKFAST. NO SIGNS OF DISTRESS NOTED. FAMILY PRESENT. SCHEDULED MEDICATION ADMINISTERED. BED IN LOW POSITION. CALL LIGHT IN REACH. SIDE RAILS UP X2. DENIES NEEDS.
[2017-05-13 08:51] VITALS: BP 113/74
--- NOTE | 2017-05-13 09:24 | NUR ---
Patient Name: BHAVIN ENRIQUEZ Admission Status: Elective Accout number: [id number] Admission Date: 05-12-2017 : 1955 Admission Diagnosis: Attending: JAIME Current LOS: 1 Anticipated DC Date: 05-18-2017 Planned Disposition: Home with Home Health Primary Insurance: [facility] Discharge Planning Comments: CM MET WITH PATIENT AND FAMILY REGARDING D/C NEEDS AND PLANS. PATIENT STATED SHE LIVES WITH HER SPOUSE (YEYO) AND WILL RETURN THERE AT DISCHARGE. THERE IS A RAMP TO ENTER HOME AND NO STAIRS INSIDE PER PATIENT. PATIENT IS INDEPENDENT WITH HER CARE AND HAS A WHEELCHAIR, WALKER, BS COMMODE, SHOWER CHAIR, AND GLUCOMETER (CKS. 2X DAILY) AT HOME. PATIENTS PCP IS DR. WHITE AND PHARMACY IS AIYA[facility] AT THE [facility]. PATIENT IS CURRENT WITH [facility] AND DAUGHTER NOTIFIED THEM OF HER HOSPITAL ADMIT. CM WILL CONTINUE TO FOLLOW PATIENT WITH D/C NEEDS AND PLANS. PCP DR. CINDY [facility] AT [facility]- [phone] NAHUN (DAUGHTER IN LAW) [phone] [facility]- [phone] Cotton Weigher: Alma Rocha Is the patient Alert and Oriented? Yes 0 * How many steps to enter\exit or inside your home? RAMP 0 * PCP DR. WHITE 0 * Pharmacy [facility] 0 * Preadmission Environment Home with Family 0 * ADLs Independent 0 * Equipment Bedside Commode Glucometer Shower Chair Walker Wheelchair 0 * Other Equipment ALSO MOTORIZED WC 0 * List name and contact numbers for known caregivers / representatives who currently or will assist patient after discharge: NAHUN (DAUGHTER IN LAW) [phone] 0 * Community resources currently utilized Home Health 0 * Please name any agencies selected above. [facility] 0 * Additional services required to return to the preadmission environment? Yes 0 * Can the patient safely return to the preadmission environment? Yes 0 * Has this patient been hospitalized within the prior 30 days at any hospital? No 0 Grand Total: 0
--- NOTE | 2017-05-13 12:20 | NUR ---
PATIENT SITTING UP ON SIDE OF BED ALERT. NO SIGNS OF DISTRESS NOTED. BED IN LOW POSITION. CALL LIGHT IN REACH.
[2017-05-13 13:12] VITALS: BP 113/77
[2017-05-13 14:50] VITALS: BP 116/66
[2017-05-13 15:57] VITALS: Ht 160 cm; Wt 72.1 kg
--- NOTE | 2017-05-13 16:37 | NUR ---
ALERT IN BED. NO SIGNS OF DISTRESS NOTED. SCHEDULED MEDICATION ADMINISTERED. SIDE RAILS UP X2. BED IN LOW POSITION. CALL LIGHT IN REACH.
[2017-05-13 20:00] VITALS: BP 125/80
[2017-05-14] VITALS (15 sets, daily range): BP systolic 105–130; BP diastolic 59–84
--- NOTE | 2017-05-14 07:45 | NUR ---
PT ASSESSMENT COMPLETE PT AWAKE TO VERBAL STIMULI NO DISTRESS NOTED DENIES PAIN CALL LIGHT IN REACH
--- NOTE | 2017-05-14 15:30 | NUR ---
PT TO OR AT THIS TIME. FAMILY AT SIDE
--- NOTE | 2017-05-14 18:23 | NUR ---
PT ARRIVED WITH VANCOMYCIN 1GRAM IN 250ML NS INFUSING PER GRAVITY.
[2017-05-15] VITALS: BP 106/65
--- NOTE | 2017-05-15 02:26 | NUR ---
ASSESSED AT THE BEGINNING OF THE SHIFT. PT WAS JUST BACK FROM SURGERY AND HAS A DRESSING TO HER RIGHT HIP. SHE SLEPT FOR A WHILE AFTER SURGERY AND THEN WAS MORE ALERT. SHE HAS BEEN UP TO THE BEDSIDE COMMODE TO VOID AND DOES WELL WITH ASSIST. SHE HAS O2 AT 2 LITERS AND PAIN MEDS HAVE BEEN PROVIDED AND THEN A MORTGAGE COORDINATOR WAS SET UP ORDERED. THE BED IS LOW, RAILS UP X;S 2 WITH THE CALL LIGHT AT HAND.
[2017-05-15 04:00] VITALS: BP 112/67
[2017-05-15 05:15] LABS: HEMATOCRIT 27.6 % (36.0-48.0); HEMOGLOBIN 8.7 g/dL (12-16); MCH 26.6 pg (26.0-34.0); MCHC 31.5 g/dL (31.0-37.0); MCV 84.4 fL (80.0-100.0); MEAN PLATELET VOLUME 9.9 fL (7.4-10.4); RBC 3.27 10x6/uL (4.00-5.40); WBC 7.1 10x3/uL (4.8-10.8)
--- NOTE | 2017-05-15 07:30 | NUR ---
PT ASSESSMENT COMPLETE AWAKE AND ALERT ORINETD X 3 LUNGS CLAER HAS DRESSING NOTED TO RIGHT HIP FROM [employer]OV[employer] AND SPACER PLACEMENT HAS SANGUANOUS DRAINAGE NOTED IN COPIUS AMOUNT DRESSING CHANGED WITH 4X4 AND ABD COVERED WITH MEDIPORE TAPE. NOTED TO HAVE INCREASE TEMPERATURE OF 100.6 PT STATES SEVERE PAIN EVEN WITH FIELD ACCOUNT DIRECTOR DILAUDID
--- NOTE | 2017-05-15 07:50 | NUR ---
PATIENT IS RESTING QUIETLY WITH EYES CLOSED NO SIGNS OF DISTRESS NOTED. BED IN LOWEST POSITION, CALL LIGHT IN REACH. BED RAILS UP X'S 2.
[2017-05-15 08:42] VITALS: BP 107/57
[2017-05-15 12:52] VITALS: BP 100/59
--- NOTE | 2017-05-15 13:58 | NUR ---
Nutrition Follow Up: Pt is eating 32% meal avg on a regular diet. Wt stable. +BM 05/14/17. No new labs to review. Meds noted. Rec continue current diet. RD following.
[2017-05-15 16:45] VITALS: BP 108/67
--- NOTE | 2017-05-15 16:52 | NUR ---
PT HAS HAD ITCHING AND ELEVATED TEMPERATURE HOWVER NO FEVER THIS AFTERNOON STOPPED USING DILAUDID HAND BENDER THIS MORNING AND WAS GIVEN HYDROCODONE PER ORDER. PAIN MEDS STATED EFFECTIVE. WILL MONITOR.
[2017-05-15 20:00] VITALS: BP 125/65
[2017-05-16] VITALS: BP 133/72
--- NOTE | 2017-05-16 02:43 | NUR ---
ASSESSED AT THE BEGINNING OF THE SHIFT. PT IS ALERT AND ORIENTED, ABLE TO VERBALIZE NEEDS. THERE IS A NEW DRESSING TO THE RIGHT HIP WHICH IS DDRY AND INTACT AT THIS TIME. SHE IS GETTING UP TO THE BED SIDE COMMODE TO VOID AND DOES WELL WITH 1-2 PERSON ASSIST. BEFORE BED SHE WAS GIVEN MEDS FOR PAIN AND ITCHING. SHE FEELS LIKE THERE SOME MED MAKING HER BREAK OUT AND ITCH. SHE STATED IT WAS NOT HER NORCO BECAUSE SHE TAKES IT AT HOME. SHE IS NOT USING THE DILAUDID DUE TO THIS BUT IS GETTING WORSE AND FEELS NOW THAT IT MIGHT BE AN ANTIBOTIC. WE WILL LET MD KNOW IN AM SO HE CAN MAKE A DECISION. THE BED IS LOW, RAILS UP X'S 2 WITH THE CALL LIGHT AT HAND.
[2017-05-16 04:00] VITALS: BP 122/68
[2017-05-16 05:36] LABS: HEMATOCRIT 23.3 % (36.0-48.0); HEMOGLOBIN 7.6 g/dL (12-16); MCHC 32.6 g/dL (31.0-37.0); MCV 82.9 fL (80.0-100.0); MEAN PLATELET VOLUME 9.6 fL (7.4-10.4); RBC 2.81 10x6/uL (4.00-5.40); RDW 16.1 % (11.5-14.5)
[2017-05-16 08:35] VITALS: BP 116/61
[2017-05-16 10:36] LABS: ANION GAP 11.3 mmol/L (8-16); BILIRUBIN - TOTAL 0.25 mg/dL (0.2-1.3); CALCIUM 7.9 mg/dL (8.5-10.1); CARBON DIOXIDE 25.8 mmol/L (21.0-32.0); CREATININE - SERUM 1.3 mg/dL (0.6-1.3); POTASSIUM - SERUM 4.1 mmol/L (3.5-5.1); PROTEIN - SERUM 5.8 g/dL (6.4-8.2)
[2017-05-16 12:01] VITALS: BP 108/65
--- NOTE | 2017-05-16 14:45 | NUR ---
PATIENT FIRST UNIT OF BLOOD TRANSFUSING. IV INTACT. VS STABLE. NO COMPLAINTS OR SIGNS OF DISTRESS. CALL LIGHT WITHIN REACH.
[2017-05-16 16:13] VITALS: BP 128/78
--- NOTE | 2017-05-16 18:17 | NUR ---
2ND UNIT OF 2 PRBCS UP AT THIS ITME PER [facility] ENGINEER MONITOR FOR REACTION PT STATES THAT SHE NORMALLY RUNS A HIGHER BODY TEMPERATURE SO STARTING TEMP 100.2 IS NOT UNUSUAL FOR HER
--- NOTE | 2017-05-16 20:00 | NUR ---
LYING IN BED,WITHOUT NEEDS.CALL LIGHT IN REACH.DOOR OPEN
[2017-05-17 04:00] VITALS: BP 117/76
[2017-05-17 05:15] LABS: MCH 26.7 pg (26.0-34.0); MCHC 32.1 g/dL (31.0-37.0); MCV 83.3 fL (80.0-100.0); MEAN PLATELET VOLUME 9.6 fL (7.4-10.4); WBC 6.8 10x3/uL (4.8-10.8)
[2017-05-17 05:18] LABS: HEMOGLOBIN 9.3 g/dL (12-16); RBC 3.48 10x6/uL (4.00-5.40)
[2017-05-17 05:22] LABS: ANION GAP 12.2 mmol/L (8-16); CALCIUM 7.8 mg/dL (8.5-10.1); CARBON DIOXIDE 24.5 mmol/L (21.0-32.0); CREATININE - SERUM 1.1 mg/dL (0.6-1.3); POTASSIUM - SERUM 3.7 mmol/L (3.5-5.1)
--- NOTE | 2017-05-17 07:39 | NUR ---
AM ROUNDS - PT IN BED AND APPEARS TO BE SLEEPING WITH EQUAL AND NON LABORED BREATHING. PT HAS A RIGHT FA, 1/2 NS AT 50CC/HR. BED AT LOWEST POSITION, SIDE RAILS UP X2, CALL MARTINES IN USE/REACH. WILL CONTINUE TO MONITOR
[2017-05-17 08:14] VITALS: BP 118/68
--- NOTE | 2017-05-17 10:42 | NUR ---
MORNING MEDICATION GIVEN. NO NEEDS AT THIS TIME. WILL CONTINUE TO MONITOR
[2017-05-17 13:10] VITALS: BP 104/65
--- NOTE | 2017-05-17 13:12 | NUR ---
DRESSING CHANGE TO RIGHT HIP - GABRIEL INTACT. CLEAN AND WELL APPROXIMATED. BLOODY DRAINAGE NOTED. APPLYED 2 ABD PADS AND SECURED WITH TAPE. WILL CONTINUE TO MONITOR
--- NOTE | 2017-05-17 19:15 | NUR ---
RECIEVED SHIFT REPORT. PT IS LYING IN BED. ALERT AND ORIENTED AND ABLE TO VERBALIZE NEEDS. IV IS PATENT AND FLUIDS ARE RUNNING PER ORDER. PT REFUSES SCD'S. PT IS ABLE TO GET UP TO BEDSIDE COMMODE WITH ASSITANCE. DRESSING TO RIGHT HIP C/D/I. PT STATES PAIN IS 2/10. NO NEEDS ARE VERBALIZED AT THIS TIME. WILL CONTINUE TO MONITOR. SIDE RAILS ARE UP X 2. BED IS IN LOWEST POSITION. CALL LIGHT IS WITHIN REACH.
[2017-05-17 20:00] VITALS: BP 119/72
--- NOTE | 2017-05-17 20:06 | NUR ---
SHIFT ASSESSMENT COMPLETED. NIGHT MEDS GIVEN WITH NO PROBLEMS. NO NEEDS ARE VOICED. WILL MONITOR. SIDE RAILS X 2. BED LOW. CALL LIGHT IN REACH.
[2017-05-18 04:00] VITALS: BP 117/66
[2017-05-18 05:52] LABS: HEMATOCRIT 29.4 % (36.0-48.0); HEMOGLOBIN 9.5 g/dL (12-16); MCH 27.1 pg (26.0-34.0); MCHC 32.3 g/dL (31.0-37.0); MEAN PLATELET VOLUME 9.5 fL (7.4-10.4); RBC 3.5 10x6/uL (4.00-5.40); RDW 16.2 % (11.5-14.5); WBC 5.6 10x3/uL (4.8-10.8)
[2017-05-18 06:02] LABS: ANION GAP 13.3 mmol/L (8-16); CALCIUM 8.2 mg/dL (8.5-10.1); CARBON DIOXIDE 23.5 mmol/L (21.0-32.0); CREATININE - SERUM 0.9 mg/dL (0.6-1.3); POTASSIUM - SERUM 3.8 mmol/L (3.5-5.1)
--- NOTE | 2017-05-18 07:00 | NUR ---
PT REC'D FROM [facility]. RESTING IN BED WITH EYES CLOSED. NO SIGNS OF DISTRESS. RESP EVEN AND UNLABORED. BED LOW, CALL LIGHT IN REACH, DENIES NEEDS. CPOC.
[2017-05-18 09:28] VITALS: BP 137/68
[2017-05-18 12:16] VITALS: BP 112/75
--- NOTE | 2017-05-18 13:40 | NUR ---
PT RESTING IN BED WITH EYES CLOSED, NO VISABLE SIGNS OF PAIN OR DISCOMFORT NOTED. BED IN LOW POSITION AND CALL LIGHT WITHIN REACH. WILL CONTINUE TO MONITOR.
--- NOTE | 2017-05-18 14:34 | NUR ---
DRESSING TO R HIP CHANGED PER PT REQUEST. AQUALCEL DRESSING APPLIED. PRN PAIN MEDICATION AND MUSCLE RELAXER ADMINISTERED PER PT REQUEST. REPOSITIONED UP IN BED. BED LOW, CALL LIGHT IN REACH, DENIES NEEDS. CPOC.
[2017-05-18 16:01] VITALS: BP 112/64
[2017-05-18 19:00] VITALS: BP 112/69
--- NOTE | 2017-05-18 19:40 | NUR ---
RECIEVED SHIFT REPORT. PT IS LYING IN BED. ALERT AND ORIENTED AND ABLE TO VERBALIZE NEEDS. IV IS PATENT AND FLUIDS ARE RUNNING PER ORDER. PT REFUSES SCD'S. PT IS AMBULATORY WITH ASSISTANCE. DRESSING TO RIGHT HIP C/D/I. PT STATES PAIN IS 5/10. ISOLATION PRECAUTIONS IN PLACE. NO NEEDS ARE VERBALIZED AT THIS TIME. WILL CONTINUE TO MONITOR. SIDE RAILS ARE UP X 2. BED IS IN LOWEST POSITION. CALL LIGHT IS WITHIN REACH.
--- NOTE | 2017-05-18 20:18 | NUR ---
SHIFT ASSESSMENT COMPLETED. NIGHT MEDS GIVEN WITH NO PROBLEMS. PT C/O PAIN 03/25. ADMINISTERED PRESCRIBED PRN NORCO PER ORDER. NO FURTHER NEEDS VOICED AT THIS TIME. WILL MONITOR. SIDE RAILS X 2. BED LOW. CALL LIGHT IN REACH.
[2017-05-19 04:00] VITALS: BP 116/78
[2017-05-19 07:17] LABS: HEMATOCRIT 30.3 % (36.0-48.0); HEMOGLOBIN 9.7 g/dL (12-16); MCV 84.4 fL (80.0-100.0); MEAN PLATELET VOLUME 9.4 fL (7.4-10.4); RBC 3.59 10x6/uL (4.00-5.40); RDW 16.4 % (11.5-14.5)
[2017-05-19 07:43] LABS: ANION GAP 14.1 mmol/L (8-16); CALCIUM 8.5 mg/dL (8.5-10.1); CARBON DIOXIDE 25.5 mmol/L (21.0-32.0); POTASSIUM - SERUM 3.6 mmol/L (3.5-5.1)
--- NOTE | 2017-05-19 08:41 | NUR ---
MORNING MEDS PASSED AT THIS TIME. PRN MUSCLE RELAXER AND BENADRYL ADMINISTERED PER PT REQUEST. BED LOW, CALL LIGHT IN REACH, DENIES NEEDS. CPOC.
[2017-05-19 08:54] VITALS: BP 128/72
--- NOTE | 2017-05-19 10:54 | NUR ---
PT HERE FOR RIGHT INFECTED HIP FOR THIS VISIT. PT AOX4 RESP EVEN AND NONLABORED PT HAS RIGHT FOREARM PATENT AND INTACT AT THIS TIME PT DENIES NEEDS AT THIS TIME. SRX2 BED AT LOWEST SETTING CALL LIGHT WITHIN REACH WILL CONTINUE TO MONITOR
--- NOTE | 2017-05-19 12:00 | NUR ---
DRESSING TO R HIP CHANGED PER PT REQUEST. 4X4'S, 2 ABD PADS, AND METAPORE TAPE APPLIED TO FORM PRESSURE DRESSING.
--- NOTE | 2017-05-19 14:10 | NUR ---
PRN PAIN MEDICATION ADMINISTERED PER PT COMPLAINTS OF 6/10 R HIP PAIN. WILL REASSESS. PT REPOSITIONED UP IN BED WELL.
[2017-05-19 19:00] VITALS: BP 105/70
--- NOTE | 2017-05-19 19:25 | NUR ---
RECIEVED SHIFT REPORT. PT IS LYING IN BED. ALERT AND ORIENTED AND ABLE TO VERBALIZE NEEDS. IV IS PATENT AND FLUIDS ARE RUNNING PER ORDER. PT IS AMBULATORY WITH ASSISTANCE. DRESSING TO RIGHT HIP C/D/I. PT STATES PAIN IS 4/10. NO NEEDS ARE VERBALIZED AT THIS TIME. WILL CONTINUE TO MONITOR. SIDE RAILS ARE UP X 2. BED IS IN LOWEST POSITION. CALL LIGHT IS WITHIN REACH.
--- NOTE | 2017-05-19 20:13 | NUR ---
SHIFT ASSESSMENT COMPLETED. NIGHT MEDS GIVEN WITH NO PROBLEMS. PT C/O PAIN 02/23. ADMINISTERED PRESCRIBED PRN NORCO PER ORDER. DENIES FURTHER NEEDS. WILL MONITOR. SIDE RAILS X 2. BED LOW. CALL LIGHT IN REACH.
[2017-05-20 04:00] VITALS: BP 128/75
[2017-05-20 05:16] LABS: HEMATOCRIT 29.1 % (36.0-48.0); HEMOGLOBIN 9.3 g/dL (12-16); MCV 84.6 fL (80.0-100.0); MEAN PLATELET VOLUME 9.5 fL (7.4-10.4); RBC 3.44 10x6/uL (4.00-5.40); RDW 16.5 % (11.5-14.5); WBC 6.1 10x3/uL (4.8-10.8)
[2017-05-20 05:31] LABS: ANION GAP 12.4 mmol/L (8-16); CALCIUM 8.5 mg/dL (8.5-10.1); CARBON DIOXIDE 26.6 mmol/L (21.0-32.0)
--- NOTE | 2017-05-20 07:15 | NUR ---
REPORT RECEIVED FROM REGISTERED NURSE MATERNITY NURSE. CALL LIGHT IN REACH.
[2017-05-20] MEDS ORDERED: FLAGYL500 MG PO (08:24)
[2017-05-20] MEDS ORDERED: ZANAFLEX4 MG PO (08:25)
[2017-05-20] MEDS ORDERED: ELIQUIS2.5 MG PO (08:25)
[2017-05-20] MEDS ORDERED: HYDROCODONE-APA1 TAB PO (08:25)
[2017-05-20] MEDS ORDERED: CUBICIN500 MG IV (08:26)
[2017-05-20 09:00] VITALS: BP 125/78
--- NOTE | 2017-05-20 09:47 | NUR ---
ASSESSMENT COMPLETED. AM MEDS ADMINISTERED. NORCO PO. REQUESTED 2 OG THEM. REFUSES SCDs. BED ALARM ON. CALL LIGHT IN REACH. WILL CONTINUE WITH PLAN OF CARE.
--- NOTE | 2017-05-20 11:12 | NUR ---
SHIRLENE PO. STATES PAIN IS DOWN TO A 3. SERVOMECHANISM ASSEMBLER IN ROOM GIVING BED BATH AND CHANGING LINENS. CALL LIGHT IN REACH.
--- NOTE | 2017-05-20 12:22 | NUR ---
KEN BLAIR, IN ROOM FOR PICC LINE PLACEMENT.
[2017-05-20 12:31] VITALS: BP 94/58
--- NOTE | 2017-05-20 14:06 | NUR ---
NORCO 2 PO PER C/O PAIN. FLAGYL PO. CALL LIGHT IN REACH.
--- NOTE | 2017-05-20 15:30 | NUR ---
CM REASSESSMENT NOTE: ABX ORDER SENT TO [place]. CM REC. CALL AND THEY ARE HAVING TROUBLE WITH INSURANCE AND IT WILL BE IN AM BEFORE THEY KNOW ANYTHING. CM SPOKE TO PATIENT AND FAMILY REGARDING THIS MATTER.
--- NOTE | 2017-05-20 16:20 | NUR ---
GIANA IN ROOM. NO NEEDS VOICED AT THIS TIME. CALL LIGHT IN REACH.
[2017-05-20 17:11] VITALS: BP 128/74
--- NOTE | 2017-05-20 18:00 | NUR ---
ON AND OFF BEDPAN. DRSG TO SHOULDER CHANGED. NORCO PO WITH EVENING MEDS. NO CHANGES IN INITIAL ASSESSMENT. STILL REFUSES SCDs. BED ALARM ON. CALL LIGHT IN REACH. WILL CONTINUE WITH PLAN OF CARE.
--- NOTE | 2017-05-20 19:40 | NUR ---
RECIEVED SHIFT REPORT. PT IS LYING IN BED. ALERT AND ORIENTED AND ABLE TO VERBALIZE NEEDS. IV IS PATENT AND FLUIDS ARE RUNNING PER ORDER. PT IS AMBULATORY WITH ASSISTANCE. DRESSING TO RIGHT HIP C/D/I. PT STATES PAIN IS 2/10. PT REFUSES SCD'S. NO NEEDS ARE VERBALIZED AT THIS TIME. WILL CONTINUE TO MONITOR. SIDE RAILS ARE UP X 2. BED IS IN LOWEST POSITION. CALL LIGHT IS WITHIN REACH.
[2017-05-20 20:00] VITALS: BP 126/73
--- NOTE | 2017-05-20 20:36 | NUR ---
SHIFT ASSESSMENT COMPLETED. NIGHT MEDS GIVEN WITH NO PROBLEMS. NO NEEDS ARE VOICED. WILL MONITOR. SIDE RAILS X 2. BED LOW. CALL LIGHT IN REACH.
[2017-05-21] VITALS: BP 132/80
[2017-05-21 04:00] VITALS: BP 133/70
[2017-05-21 05:33] LABS: HEMATOCRIT 30.8 % (36.0-48.0); HEMOGLOBIN 9.6 g/dL (12-16); MCH 26.5 pg (26.0-34.0); MCHC 31.2 g/dL (31.0-37.0); MCV 85.1 fL (80.0-100.0); MEAN PLATELET VOLUME 9.3 fL (7.4-10.4); RBC 3.62 10x6/uL (4.00-5.40); RDW 16.2 % (11.5-14.5); WBC 7.4 10x3/uL (4.8-10.8)
[2017-05-21 05:48] LABS: ANION GAP 13.3 mmol/L (8-16); CALCIUM 8.6 mg/dL (8.5-10.1); CARBON DIOXIDE 26.6 mmol/L (21.0-32.0); POTASSIUM - SERUM 3.9 mmol/L (3.5-5.1)
--- NOTE | 2017-05-21 08:00 | NUR ---
PT AOX4 RESP EVEN AND NONLABORED PT DENIES NEEDS AT THIS TIME IV TO RIGHT FOREARM PATENT AND INTACT SRX2 BED AT LOWEST SETTING CALL LIGHT WITHIN REACH WILL CONTINUE TO MONITOR
[2017-05-21 09:27] VITALS: BP 149/85
[2017-05-21 13:20] VITALS: BP 161/78
--- NOTE | 2017-05-21 14:25 | NUR ---
NUTRITION MONITORING & EVAL CHART REVIEWED, PT REMAINS IN ISOLATION. REG DIET WITH 75% INTAKE RECENT MEALS. RD FOLLOWING
[2017-05-21 16:40] VITALS: BP 126/84
--- NOTE | 2017-05-21 16:54 | NUR ---
CM REASSESSMENT NOTE: RED NORBERTO CALLED ABX WILL BE 16,000. CM CALLED [facility]ATH[facility] TOM[facility] TO SEE ABOUT OP ABX THERAPY AND SHE STATED SHE WOULD LET CM KNOW SOON SHE HAS ANSWER.
[2017-05-21 18:08] LABS: AEROBE ID Final report (())
[2017-05-21 20:00] VITALS: BP 130/73
--- NOTE | 2017-05-21 20:38 | NUR ---
RECIEVED PT ON WALKING ROUNDS REPORT RECIEVED AND CARE OF PT TRANSFERED. AWAKE AND ALERT ORINETD X 3 LUNGS CLAER BILAT DRESSING INTACT TO RIGHT HIP CLEAN AND DRY. CALL LIGHT INREACH SIDE RAILS UP X 2 VOICES ALL NEEDS TO STAFF SEE FLOW SHEET FOR COMPLETE ASSESSMENT.
--- NOTE | 2017-05-21 23:23 | NUR ---
RN NOTE: PT AWAKE WATCHING TV IN LOW HOPKINS'S POSITION. IV IN RIGHT WRIST PATENT WITH 1/2 NS INFUSING AT 35 ML / HR. LEFT PICC LINE SALINE LOCKED, WITH CLEAN DRESSING. WILL CONTINUE TO MONITOR FOR NEEDS. CALL LIGHT WITHIN REACH.
[2017-05-22] VITALS: BP 143/107
--- NOTE | 2017-05-22 02:22 | NUR ---
PT RESTING IN BED VOIDS TO BED GASPAR NEEDED PAIN MEDS PER REQUEST GIVEN. PT VOICES ALL NEEDS TO STAFF.
[2017-05-22 04:00] VITALS: BP 134/75
--- NOTE | 2017-05-22 05:36 | NUR ---
SLEEPING IN BED WITH EYES CLOSED RESPS EVEN AND NON LABORED. CALL LIGHT IN REACH.
[2017-05-22 06:01] LABS: HEMATOCRIT 28.8 % (36.0-48.0); MCH 26.7 pg (26.0-34.0); MCHC 31.3 g/dL (31.0-37.0); MCV 85.5 fL (80.0-100.0); MEAN PLATELET VOLUME 9.4 fL (7.4-10.4); RBC 3.37 10x6/uL (4.00-5.40); RDW 16.2 % (11.5-14.5); WBC 8.8 10x3/uL (4.8-10.8)
[2017-05-22 06:14] LABS: ANION GAP 12.1 mmol/L (8-16); CALCIUM 8.4 mg/dL (8.5-10.1); CREATININE - SERUM 1.1 mg/dL (0.6-1.3); POTASSIUM - SERUM 4.1 mmol/L (3.5-5.1)
--- NOTE | 2017-05-22 08:00 | NUR ---
PT AOX4 RESP EVEN AND NONLABORED PT DENIES NEEDS AT THIS TIME IV TO RIGHT FOREARM PATENT AND INTACT. SRX2 BED AT LOWEST SETTING CALL LIGHT WITHIN REACH WILL CONTINUE TO MONITOR
[2017-05-22 08:44] VITALS: BP 158/90
[2017-05-22] MEDS ORDERED: PERCOCET 10/3251 TA1 PO (10:18)
--- NOTE | 2017-05-22 11:08 | NUR ---
CM REASSESSMENT NOTE: CM REC. CALL FROM [facility] AND PATIENT HAS BEEN APPROVED FOR OP ABX. THERAPY. MED ORDER WAS FAXED TO [facility]. PATIENT WILL REC. HER DOSE TODAY IN HOSPITAL AND THEN D/C HOME (CURRENT WITH [facility]). PATIENT WILL THEN GO TO ER FOR THE WEEKEND TO REC. HER ABX. CM CALLED ESAU IN OP AND SHE STATED TO HAVE PATIENT COME AROUND 1:00 FOR HER ABX. ON THURSDAY AND THEY WILL SET TIMES FROM THEN ON OUT. THIS WAS EXPLAINED TO PATIENT AND CM WILL SPEAK WITH DAUGHTERS WHEN THEY ARRIVE TO ROOM.
[2017-05-22 12:40] VITALS: BP 112/75
--- NOTE | 2017-05-22 16:58 | NUR ---
PT GIVEN PAPER AND VERBAL DISCHARGE INSTRUCTIONS AT THIS TIME WITH 4 PAPER PRESCRIPTIONS HANDED AT THIS TIME. IV TO RIGHT FOREARM PATENT DISCONTINUED WITH CATHETER INTACT AT THIS TIME. PT TAKEN VIA WHEELCHAIR VIA PRIVATE VEHICLE AT THIS TIME
== END 2017-05-22 17:05 | disposition home health service (06) | DRG 464 ==
LOC: D.MS 10:28
PROVIDERS: ADMIT Orthopaedic Surgery
PROC: 0SP90JZ Removal of Synthetic Substitute from Right Hip Joint, Open Approach (ICD-10-PCS; principal; 2017-05-14 13:00)
PROC: 0SH908Z Insertion of Spacer into Right Hip Joint, Open Approach (ICD-10-PCS; 2017-05-14 13:00)
PROC: 02HV33Z Insertion of Infusion Device into Superior Vena Cava, Percutaneous Approach (ICD-10-PCS; 2017-05-20)
PROC: B548ZZA Ultrasonography of Superior Vena Cava, Guidance (ICD-10-PCS; 2017-05-20)
DX: T84.51XA Infection and inflammatory reaction due to internal right hip prosthesis, initial encounter (principal); D62 Acute posthemorrhagic anemia; E78.5 Hyperlipidemia, unspecified; E11.9 Type 2 diabetes mellitus without complications; Z79.84 Long term (current) use of oral hypoglycemic drugs; K21.9 Gastro-esophageal reflux disease without esophagitis; R21 Rash and other nonspecific skin eruption

== ENCOUNTER 2017-05-25 13:01 | Outpatient (CLI) | payer MEDICARE ==
[~2017-05-25] VITALS: Ht 160 cm; Wt 78.0 kg
[~2017-05-25 13:01] MED LIST changes: +ADVIL100 M1 PO; +AMRIX30 MG PO; +COLACE100 MG PO; +CUBICIN500 MG IV; +FLAGYL500 MG PO; +ZANAFLEX4 MG PO
[2017-05-25 14:00] VITALS: BP 97/43; Ht 160 cm; Wt 78.0 kg
[2017-05-25 15:13] LABS: BASOPHILS 0.3 % (0-2); EOSINOPHILS 4.4 % (0-7); HEMATOCRIT 29.9 % (36.0-48.0); HEMOGLOBIN 9.1 g/dL (12-16); IMMATURE GRANULOCYTES 1.9 % (0-5); LYMPHOCYTES 16.4 % (15-50); MCH 26.7 pg (26.0-34.0); MCHC 30.4 g/dL (31.0-37.0); MCV 87.7 fL (80.0-100.0); MEAN PLATELET VOLUME 9.3 fL (7.4-10.4); MONOCYTES 8.6 % (2-11); NEUTROPHILS 68.4 % (40-80); PLATELET COUNT 309 10x3/uL (130-400); RBC 3.41 10x6/uL (4.00-5.40); RDW 17.2 % (11.5-14.5); WBC 7.5 10x3/uL (4.8-10.8)
[2017-05-25 15:37] LABS: CREATININE - SERUM 1.3 mg/dL (0.6-1.3)
[2017-05-26] MEDS ORDERED: PERCOCET 10/3251 TA1 PO (13:04)
== END 2017-05-25 23:59 | disposition home or self-care (01) ==
LOC: D.OPS 13:01 → EDSTATUS 15:00 → D.OPS 15:00
PROVIDERS: Student in an Organized Health Care Education/Training Program
DX: T84.59XA Infection and inflammatory reaction due to other internal joint prosthesis, initial encounter (principal)

== ENCOUNTER → 2017-05-26 12:41 | Outpatient (CLI) | payer MEDICARE ==
[~2017-05-26] VITALS: Ht 160 cm; Wt 78.1 kg
[2017-05-26 13:12] VITALS: BP 89/52; Ht 160 cm; Wt 78.1 kg
== END | disposition home or self-care (01) ==
LOC: D.OPS 12:41 → EDSTATUS 15:00 → D.OPS 15:00
DX: T84.59XA Infection and inflammatory reaction due to other internal joint prosthesis, initial encounter (principal)

== ENCOUNTER 2017-05-27 12:00 | Outpatient (CLI) | payer MEDICARE ==
[~2017-05-27] VITALS: Ht 160 cm; Wt 78.1 kg
[2017-05-27 15:34] VITALS: BP 94/52; Ht 160 cm; Wt 78.1 kg
--- NOTE | 2017-05-27 15:47 | NUR ---
1510-INFUSION COMPLETED, LINE FLUSHED. 1530-D/C HOME VIA WHEELCHAIR WITH FAMILY.
--- NOTE | 2017-05-27 15:48 | NUR ---
1400-PICC PATENT LEFT ARM, FLUSHED WITH SALINE. 1410-INFUSION STARTED VIA PUMP.
== END 2017-05-27 15:30 | disposition home or self-care (01) ==
LOC: D.OPS 12:00
DX: T84.59XA Infection and inflammatory reaction due to other internal joint prosthesis, initial encounter (principal)

== ENCOUNTER 2017-05-28 12:30 | Outpatient (CLI) | payer MEDICARE ==
[~2017-05-28] VITALS: Ht 160 cm; Wt 78.2 kg
[2017-05-28 14:32] VITALS: BP 85/53; Ht 160 cm; Wt 78.2 kg
--- NOTE | 2017-05-28 15:12 | NUR ---
PICC LINE DRESSING CHANGED. BOTH LINES FLUSHED WITH SALINE AND HEPARIN. BOTH PORT LINES PRN ADAPTORS CHANGED ALONG WITH NEW SWAB CAPS.
== END 2017-05-28 15:15 | disposition home or self-care (01) ==
LOC: D.OPS 12:30
DX: T84.59XA Infection and inflammatory reaction due to other internal joint prosthesis, initial encounter (principal)

== ENCOUNTER 2017-05-29 09:00 | Outpatient (CLI) | payer MEDICARE ==
[~2017-05-29] VITALS: Ht 160 cm; Wt 77.7 kg
[2017-05-29 18:39] VITALS: BP 134/80; BMI 30.3
[2017-05-31 16:06] VITALS: Ht 160 cm; Wt 77.7 kg
== END 2017-05-29 23:59 | disposition home or self-care (01) ==
LOC: D.OPS 09:00
DX: T84.59XA Infection and inflammatory reaction due to other internal joint prosthesis, initial encounter (principal)

== ENCOUNTER 2017-05-30 12:09 | Outpatient (CLI) | payer MEDICARE ==
[~2017-05-30] VITALS: Ht 160 cm; Wt 78.1 kg
--- NOTE | 2017-05-30 12:29 | NUR ---
RECEIVED PT VIA BED.
[2017-05-30 12:42] VITALS: BP 118/65; Ht 160 cm; Wt 78.1 kg
--- NOTE | 2017-05-30 16:07 | NUR ---
IV ANTIBIOTIC GIVEN ORDERED. FLUSHED PICC LINE ORDERED WITH SALINE FLUSH AND HEPARIN FLUSH. PT SIGNED D/C PAPERWORK AND GIVEN COPY. PT D/C VIA WHEELCHAIR ACCOMPANIED BY SON-IN-LAW.
== END 2017-05-30 16:08 | disposition home or self-care (01) ==
LOC: D.OPS 12:09 → D.MS 12:10 → D.OPS 16:08
DX: T84.59XA Infection and inflammatory reaction due to other internal joint prosthesis, initial encounter (principal)

== ENCOUNTER 2017-05-31 12:06 | Outpatient (CLI) | payer MEDICARE ==
--- NOTE | 2017-05-31 13:50 | NUR ---
PATIENT IV FLUSHED AND MEDS STARTED AT THIS TIME. NO COMPLAINTS. FAMILY AT BEDSIDE. CALL LIGHT WITHIN REACH. GAVE PATIENT A FEW ITEMS FOR DRESSING CHANGE.
[2017-05-31 14:01] VITALS: BP 111/61
--- NOTE | 2017-05-31 15:00 | NUR ---
PATIENT PICC FLUSHED WITH SALINE AND HEP LOCK FLUSH. NO COMPLAINTS OR PROBLEMS. IV INTACT. DRESSING INTACT. CALL LIGHT WITHIN REACH.
[2017-05-31 16:06] VITALS: BP 111/61; Ht 160 cm
== END 2017-05-31 15:15 ==
LOC: D.OPS 12:06 → D.MS 12:15 → D.OPS 15:15
DX: T84.59XA Infection and inflammatory reaction due to other internal joint prosthesis, initial encounter (principal)

== ENCOUNTER 2017-06-01 12:40 | Outpatient (CLI) | payer MEDICARE ==
[~2017-06-01] VITALS: Ht 160 cm; Wt 80.9 kg
[2017-06-01 14:17] VITALS: Ht 160 cm; Wt 80.9 kg
[2017-06-01 15:24] LABS: C-REACTIVE PROTEIN < 0.2 mg/dL (0.0-0.9); CREATININE - SERUM 0.9 mg/dL (0.6-1.3); UREA NITROGEN 14 mg/dL (7-18)
[2017-06-01 15:26] LABS: CREATINE KINASE 5328 UL (21-215)
[2017-06-01 15:27] LABS: CKMB 9.3 U/L (0.0-3.6)
[2017-06-01 15:30] LABS: HEMATOCRIT 26.2 % (36.0-48.0); HEMOGLOBIN 8.1 g/dL (12-16); LYMPHOCYTES 18.4 % (15-50); MCH 26.6 pg (26.0-34.0); MCHC 30.9 g/dL (31.0-37.0); MCV 86.2 fL (80.0-100.0); MEAN PLATELET VOLUME 9.2 fL (7.4-10.4); NEUTROPHILS 67.4 % (40-80); RBC 3.04 10x6/uL (4.00-5.40); RDW 17.2 % (11.5-14.5); WBC 4.6 10x3/uL (4.8-10.8)
[2017-06-01 15:32] LABS: PLATELET COUNT 239 10x3/uL (130-400)
== END 2017-06-01 14:50 | disposition home or self-care (01) ==
LOC: D.OPS 12:40
PROVIDERS: Student in an Organized Health Care Education/Training Program
DX: T84.50XA Infection and inflammatory reaction due to unspecified internal joint prosthesis, initial encounter (principal); Z79.2 Long term (current) use of antibiotics

== ENCOUNTER → 2017-06-02 12:00 | Outpatient (CLI) | payer MEDICARE ==
[~2017-06-02] VITALS: Ht 160 cm; Wt 77.7 kg
[2017-06-02 13:42] VITALS: BP 117/75; Ht 160 cm; Wt 77.7 kg
== END | disposition home or self-care (01) ==
LOC: D.OPS 12:00
DX: T84.59XA Infection and inflammatory reaction due to other internal joint prosthesis, initial encounter (principal)

== ENCOUNTER 2017-06-03 12:00 | Outpatient (CLI) | payer MEDICARE ==
[~2017-06-03] VITALS: Ht 160 cm; Wt 77.7 kg
[2017-06-03 13:40] VITALS: Ht 160 cm; Wt 77.7 kg
--- NOTE | 2017-06-03 14:24 | NUR ---
1405 PICC LINE DRESSING CHANGE, SLIGHT REDNESS, LESS THAN 2MM AROUND INSERTION SITE, CLEANSED WITH CENTRAL LINE KIT AND DRESSING.
== END 2017-06-03 14:24 | disposition home or self-care (01) ==
LOC: D.OPS 12:00
DX: T84.59XA Infection and inflammatory reaction due to other internal joint prosthesis, initial encounter (principal)

== ENCOUNTER 2017-06-04 11:50 | Outpatient (CLI) | payer MEDICARE ==
[2017-06-04 14:48] VITALS: BP 120/84; Ht 160 cm
--- NOTE | 2017-06-04 14:51 | NUR ---
1400-ACCESSED REPORT TO PICC LINE, BRISK BLOOD RETURN, FLUSHES EASILY-LAB WORK OBTAINED AT THIS TIME. 1430-INFUSION COMPLETE, FLUSHED EACH PORT WITH 10CC NORMAL SALINE AND 500U HEPARIN.
[2017-06-04 15:11] LABS: CREATINE KINASE 1469 UL (21-215)
[2017-06-04 16:28] LABS: CKMB 2.9 U/L (0.0-3.6)
== END 2017-06-04 14:35 ==
LOC: D.OPS 11:50
PROVIDERS: Student in an Organized Health Care Education/Training Program
DX: T84.59XA Infection and inflammatory reaction due to other internal joint prosthesis, initial encounter (principal)

== ENCOUNTER 2017-06-05 11:25 | Outpatient (CLI) | payer MEDICARE ==
[~2017-06-05] VITALS: Ht 160 cm; Wt 83.6 kg
[2017-06-05 12:16] VITALS: Ht 160 cm; Wt 83.6 kg
--- NOTE | 2017-06-05 12:23 | NUR ---
1200 LEFT ARM PICC DRESSING CHANGED WITH STERILE TECHNIQUE BY BECKIE COELHO R.N. WITH STERILE TECHNIQUE. PUT ON BIOPATCH CORRECTLY AND DRESSING CHANGED. BLOOD DRAWN. IN ISOLATION FOR RT HIP VRE. EXPLAINED REASON OF ANTIBIOTIC. VERBALLY UNDERSTANDS.
--- NOTE | 2017-06-05 12:25 | NUR ---
1215 CUBICIN STARTED AND INFUSING VIA LT PICC AT 200CC/HR. LT ARM PICC NO REDNESS OR SWELLING.
[2017-06-05 13:09] LABS: CREATININE - SERUM 0.9 mg/dL (0.6-1.3); UREA NITROGEN 13 mg/dL (7-18)
[2017-06-05 13:14] LABS: CKMB 2.5 U/L (0.0-3.6); CREATINE KINASE 1114 UL (21-215)
--- NOTE | 2017-06-05 13:35 | NUR ---
1245 CUBICIN COMPLETED. BOTH PORTS PICC FLUSHED WITH SALINE AND HEPARIN. BOTH CAPS CHANGED AND DONE WITH STERILE TECHNIQUE.
--- NOTE | 2017-06-05 13:39 | NUR ---
1300 DISCHARGE INSTRUCTIONS GIVEN AND VERBALLY UNDERSTANDS AND TOLD TO RETURN TO ER FOR WEEKEND ANTIBIOTICS.
--- NOTE | 2017-06-05 13:40 | NUR ---
1320 TO HOME VIA W/C.
== END 2017-06-05 13:20 | disposition home or self-care (01) ==
LOC: D.OPS 11:25
PROVIDERS: Student in an Organized Health Care Education/Training Program
DX: T84.59XA Infection and inflammatory reaction due to other internal joint prosthesis, initial encounter (principal)

== ENCOUNTER 2017-06-07 11:51 | Outpatient (CLI) | payer MEDICARE ==
[~2017-06-07] VITALS: Ht 160 cm; Wt 77.7 kg
--- NOTE | 2017-06-07 12:32 | NUR ---
PT REC'D TO ROOM VIA WC. AAOX4. NO COMPLAINTS OF PAIN. PICC LINE TO L UPPER ARM FLUSHED EASILY. QUICK START COMPLETE. SWAB CAPS APPLIED TO PICC LINE. AWAITING IV ABX TO BE DELIVERED BY PHARMACY. BED LOW, CALL LIGHT IN REACH, DENIES NEEDS. CPOC.
[2017-06-07 12:40] VITALS: BP 144/85; Ht 160 cm; Wt 77.7 kg
== END 2017-06-07 14:04 | disposition home or self-care (01) ==
LOC: D.OPS 11:51 → D.MS 11:53 → D.OPS 14:04
DX: T84.59XA Infection and inflammatory reaction due to other internal joint prosthesis, initial encounter (principal)

== ENCOUNTER 2017-06-08 13:10 | Outpatient (CLI) | payer MEDICARE ==
[~2017-06-08] VITALS: Ht 160 cm; Wt 78.1 kg
[2017-06-08 14:48] VITALS: Ht 160 cm; Wt 78.1 kg
--- NOTE | 2017-06-08 15:03 | NUR ---
1440 TO ROOM FOR ASSESSMENT AND LAB DRAW AND DAPTOMYCIN. UNABLE TO DRAW FROM PICC LINE BOTH PORTS FLUSH BUT NO RETURN. CALLED ROSSY IV NURSE AND STATED OKAY TO USE BUT NEEDS TO BE DRAWN PERIPHERLLY CALLED BHAVANI IN LAB TO DRAW BLOOD. ROSSY HERE AND ASSESSED LINE AND STATED SOMETIMES THEY DONT DRAW.
--- NOTE | 2017-06-08 15:06 | NUR ---
1506 CUBICIN INFUSING LEFT UPPER ARM PICC NO REDNESS OR SWELLING AND DRESSING INTACT.
--- NOTE | 2017-06-08 15:17 | NUR ---
1515 ANTIBIOTIC COMPLETE. FLUSHED PICC LINES ORDERED. DISCHARGE INSTRUCTIONS GIVEN. TO HOME VIA W/C 1517.
[2017-06-08 15:22] LABS: BASOPHILS 0.2 % (0-2); EOSINOPHILS 5.8 % (0-7); HEMATOCRIT 29.4 % (36.0-48.0); HEMOGLOBIN 9.2 g/dL (12-16); IMMATURE GRANULOCYTES 0.6 % (0-5); LYMPHOCYTES 22.2 % (15-50); MCH 27.3 pg (26.0-34.0); MCHC 31.3 g/dL (31.0-37.0); MCV 87.2 fL (80.0-100.0); MEAN PLATELET VOLUME 9.6 fL (7.4-10.4); MONOCYTES 9.9 % (2-11); NEUTROPHILS 61.3 % (40-80); PLATELET COUNT 213 10x3/uL (130-400); RBC 3.37 10x6/uL (4.00-5.40); RDW 18.5 % (11.5-14.5); WBC 4.6 10x3/uL (4.8-10.8)
[2017-06-08 16:45] LABS: ERYTHROCYTE SEDIMENTATION RATE 60 mm/hr (0-30)
[2017-06-08 17:15] LABS: CREATINE KINASE 365 UL (21-215); UREA NITROGEN 10 mg/dL (7-18)
[2017-06-08 17:28] LABS: CKMB 1.6 U/L (0.0-3.6)
== END 2017-06-08 15:17 | disposition home or self-care (01) ==
LOC: D.OPS 13:10
PROVIDERS: Student in an Organized Health Care Education/Training Program
DX: T84.59XA Infection and inflammatory reaction due to other internal joint prosthesis, initial encounter (principal)

== ENCOUNTER 2017-06-09 07:02 | Outpatient (CLI) | payer MEDICARE ==
[~2017-06-09] VITALS: Ht 160 cm; Wt 77.7 kg
[2017-06-09 13:30] VITALS: Ht 160 cm; Wt 77.7 kg
== END 2017-06-09 14:10 | disposition home or self-care (01) ==
LOC: D.OPS 07:02
DX: T84.59XA Infection and inflammatory reaction due to other internal joint prosthesis, initial encounter (principal)

== ENCOUNTER 2017-06-10 09:10 | Outpatient (CLI) | payer MEDICARE ==
[~2017-06-10] VITALS: Ht 160 cm; Wt 77.7 kg
[2017-06-10 10:12] VITALS: Ht 160 cm; Wt 77.7 kg
== END 2017-06-10 11:55 | disposition home or self-care (01) ==
LOC: D.OPS 09:10
DX: T84.59XA Infection and inflammatory reaction due to other internal joint prosthesis, initial encounter (principal)

== ENCOUNTER 2017-06-11 06:54 | Outpatient (CLI) | payer MEDICARE ==
[~2017-06-11] VITALS: Ht 160 cm; Wt 81.8 kg
[2017-06-11 12:43] VITALS: BP 130/79; Ht 160 cm; Wt 81.8 kg
== END 2017-06-11 13:22 | disposition home or self-care (01) ==
LOC: D.OPS 06:54
DX: T84.59XA Infection and inflammatory reaction due to other internal joint prosthesis, initial encounter (principal)

== ENCOUNTER 2017-06-12 11:45 | Outpatient (CLI) | payer MEDICARE ==
[~2017-06-12] VITALS: Ht 160 cm; Wt 81.8 kg
[2017-06-12 13:17] VITALS: BP 163/110; BMI 31.9
[2017-06-12 13:21] VITALS: BP 163/110; Ht 160 cm; Wt 81.8 kg
--- NOTE | 2017-06-12 13:25 | NUR ---
1230 PICC LINE IN LT FOREARM DRESSING REMOVED AND CHANGED USING GENERAL FARMER. 1311 INFUSION STOPPED LINES FLUSHED WITH NORMAL SALINE THEN CLEANED WITH ALCOHOL BEFORE CHANGING PRN CAPS REPLACED WITH STERILE CAPS THEN FLUSHED WITH 4CC HERARIN. BOTH LINES COMPLETED
== END 2017-06-12 13:12 | disposition home or self-care (01) ==
LOC: D.OPS 11:45
DX: T84.59XA Infection and inflammatory reaction due to other internal joint prosthesis, initial encounter (principal)

== ENCOUNTER 2017-06-13 10:48 | Outpatient (CLI) | payer MEDICARE ==
--- NOTE | 2017-06-13 12:07 | NUR ---
PORTS FLUSHED WITH SALINE THEN ABX INITIATED. FAMILY IN ROOM. CALL LIGHT IN REACH.
[2017-06-13 13:19] VITALS: Ht 160 cm
--- NOTE | 2017-06-13 13:50 | NUR ---
DC'D TO VEHICLE VIA WC WITH FAMILY.
== END 2017-06-13 13:50 | disposition home or self-care (01) ==
LOC: D.OPS 10:48 → D.MS 10:52 → D.OPS 13:50
DX: T84.59XA Infection and inflammatory reaction due to other internal joint prosthesis, initial encounter (principal)

== ENCOUNTER 2017-06-15 12:00 | Outpatient (CLI) | payer MEDICARE ==
[~2017-06-15] VITALS: Ht 160 cm; Wt 81.8 kg
[2017-06-15 12:53] VITALS: BMI 31.9
[2017-06-15 12:57] LABS: BASOPHILS 0.2 % (0-2); EOSINOPHILS 7.8 % (0-7); HEMATOCRIT 32.5 % (36.0-48.0); HEMOGLOBIN 10.1 g/dL (12-16); IMMATURE GRANULOCYTES 0.2 % (0-5); LYMPHOCYTES 22.8 % (15-50); MCH 27.2 pg (26.0-34.0); MCHC 31.1 g/dL (31.0-37.0); MCV 87.4 fL (80.0-100.0); MEAN PLATELET VOLUME 9.9 fL (7.4-10.4); MONOCYTES 12.1 % (2-11); NEUTROPHILS 56.9 % (40-80); PLATELET COUNT 241 10x3/uL (130-400); RBC 3.72 10x6/uL (4.00-5.40); RDW 18.5 % (11.5-14.5); WBC 4.5 10x3/uL (4.8-10.8)
[2017-06-15 14:42] LABS: ERYTHROCYTE SEDIMENTATION RATE 51 mm/hr (0-30)
[2017-06-16 14:04] VITALS: Ht 160 cm; Wt 81.8 kg
[2017-06-19] MEDS ORDERED: LISINOPRIL-HCTZ1 T11 PO (11:19)
[2017-06-19] MEDS ORDERED: GLUCOPHAGE1000 MG PO (11:20)
== END 2017-06-15 23:59 | disposition home or self-care (01) ==
LOC: D.OPS 12:00
PROVIDERS: Student in an Organized Health Care Education/Training Program
DX: T84.50XA Infection and inflammatory reaction due to unspecified internal joint prosthesis, initial encounter (principal)

== ENCOUNTER 2017-06-16 13:39 | Outpatient (CLI) | payer MEDICARE ==
[2017-06-16 14:04] VITALS: BP 136/86; Ht 160 cm
== END 2017-06-16 14:06 | disposition home or self-care (01) ==
LOC: D.OPS 13:39
DX: T84.59XA Infection and inflammatory reaction due to other internal joint prosthesis, initial encounter (principal)

== ENCOUNTER 2017-06-17 11:15 | Outpatient (CLI) | payer MEDICARE ==
[~2017-06-17] VITALS: Ht 160 cm; Wt 81.8 kg
[2017-06-17 15:08] VITALS: BP 122/77; Ht 160 cm; Wt 81.8 kg
== END 2017-06-17 13:45 | disposition home or self-care (01) ==
LOC: D.OPS 11:15
DX: T84.59XA Infection and inflammatory reaction due to other internal joint prosthesis, initial encounter (principal)

== ENCOUNTER 2017-06-18 12:10 | Outpatient (CLI) | payer MEDICARE ==
[2017-06-18 14:25] VITALS: Ht 160 cm
--- NOTE | 2017-06-18 15:07 | NUR ---
1505--IV DC'D. DISCHARGE INSTRUCTIONS GIVEN, PT VERBALIZES UNDERSTANDING. PT OFF UNIT VIA WC. YANET ROGERS
[2017-06-19] MEDS ORDERED: LISINOPRIL-HCTZ1 T11 PO (11:19)
[2017-06-19] MEDS ORDERED: GLUCOPHAGE1000 MG PO (11:20)
== END 2017-06-18 13:05 | disposition home or self-care (01) ==
LOC: D.OPS 12:10
DX: T84.59XA Infection and inflammatory reaction due to other internal joint prosthesis, initial encounter (principal)

== ENCOUNTER → 2017-06-19 13:11 | Outpatient (CLI) | payer MEDICARE ==
[~2017-06-19] VITALS: Ht 160 cm; Wt 81.8 kg
[2017-06-19 11:21] VITALS: BMI 31.9
[2017-06-19 11:26] VITALS: Ht 160 cm; Wt 81.8 kg
--- NOTE | 2017-06-19 11:29 | NUR ---
1115 LEFT UPPER ARM PICC LINE DRESSING CHANGED WITH STERILE TECHNIQUE. CAPS CHANGED AND FAXED ORDER FOR ANTIBIOTIC. ASSESSMENT AND V/S COMPLETE.
--- NOTE | 2017-06-19 11:46 | NUR ---
1137 ANTIBIOTIC DAPTOMYCIN STARTED VIA PICC LEFT ARM NO REDNESS OR SWELLING INFUSING WITHOUT PROBLEMS.
--- NOTE | 2017-06-19 13:07 | NUR ---
1221 PORTS FLUSHED WITH SALINE AND HEPARIN.1225 DISCHARGED TO HOME VIA W/C WITH SON.
[~2017-06-19 13:11] MED LIST changes: +LISINOPRIL-HCTZ1 T11 PO
== END | disposition home or self-care (01) ==
LOC: D.OPS 13:11
DX: T84.59XA Infection and inflammatory reaction due to other internal joint prosthesis, initial encounter (principal)

== ENCOUNTER 2017-06-21 10:07 | Outpatient (CLI) | payer MEDICARE ==
[~2017-06-21] VITALS: Ht 160 cm; Wt 81.8 kg
--- NOTE | 2017-06-21 10:20 | NUR ---
RECEIVED TO ROOM 2222 AT THIS TIME FROM ADMISSIONS FOR OP ANTIBIOTIC THERAPY. ASSESSMENT PERFORMED PER FLOWSHEET. VITAL SIGNS STABLE AND PT DENIES PAIN AT THIS TIME. LEFT UPPER ARM PICC LINE WITH DRESSING PATENT AND DATED 06/19/17. SWAB CAPS IN USE. CALL LIGHT IN REACH OF PATIENT AND FAMILY AT BEDSIDE. WILL CONTINUE WITH PLAN OF CARE.
[2017-06-21 10:22] VITALS: BP 131/84; Ht 160 cm; Wt 81.8 kg
--- NOTE | 2017-06-21 10:59 | NUR ---
IV ANTIBIOTIC STARTED AT THIS TIME PER ORDER.
--- NOTE | 2017-06-21 11:30 | NUR ---
IV INFUSION COMPLETE AND PICC LINE LUMENS FLUSHED PER ORDERS. PT TO D/C HOME AT THIS TIME.
== END 2017-06-21 11:34 | disposition home or self-care (01) ==
LOC: D.OPS 10:07 → D.MS 10:07 → D.OPS 11:34
DX: T84.59XA Infection and inflammatory reaction due to other internal joint prosthesis, initial encounter (principal)

== ENCOUNTER 2017-06-22 11:29 | Outpatient (CLI) | payer MEDICARE ==
[~2017-06-22] VITALS: Ht 160 cm; Wt 81.8 kg
[2017-06-22 14:19] VITALS: BP 118/74; Ht 160 cm; Wt 81.8 kg
--- NOTE | 2017-06-22 15:07 | NUR ---
1500-PICC FLUSHED WITH 10CC SALINE AND HEP FLUSH. 1507-D/C HOME VIA PERSONAL WHEELCHAIR
[2017-06-22 15:18] LABS: BASOPHILS 0.2 % (0-2); EOSINOPHILS 4.9 % (0-7); HEMATOCRIT 32.5 % (36.0-48.0); HEMOGLOBIN 10.1 g/dL (12-16); IMMATURE GRANULOCYTES 0.2 % (0-5); LYMPHOCYTES 21.3 % (15-50); MCH 27.2 pg (26.0-34.0); MCHC 31.1 g/dL (31.0-37.0); MCV 87.4 fL (80.0-100.0); MEAN PLATELET VOLUME 10.2 fL (7.4-10.4); NEUTROPHILS 61.4 % (40-80); PLATELET COUNT 198 10x3/uL (130-400); RBC 3.72 10x6/uL (4.00-5.40); RDW 17.7 % (11.5-14.5); WBC 4.9 10x3/uL (4.8-10.8)
[2017-06-22 16:13] LABS: ALBUMIN 2.7 g/dL (3.4-5.0); ANION GAP 11.5 mmol/L (8-16); BILIRUBIN - TOTAL 0.23 mg/dL (0.2-1.3); CALCIUM 8.8 mg/dL (8.5-10.1); CARBON DIOXIDE 28.9 mmol/L (21.0-32.0); CREATININE - SERUM 0.9 mg/dL (0.6-1.3); POTASSIUM - SERUM 4.4 mmol/L (3.5-5.1); PROTEIN - SERUM 6.3 g/dL (6.4-8.2)
[2017-06-22 16:33] LABS: ERYTHROCYTE SEDIMENTATION RATE 65 mm/hr (0-30)
== END 2017-06-22 15:07 | disposition home or self-care (01) ==
LOC: D.OPS 11:29
PROVIDERS: Student in an Organized Health Care Education/Training Program
DX: T84.50XA Infection and inflammatory reaction due to unspecified internal joint prosthesis, initial encounter (principal); Z79.2 Long term (current) use of antibiotics

== ENCOUNTER → 2017-06-23 10:25 | Outpatient (CLI) | payer MEDICARE ==
[~2017-06-23] VITALS: Ht 160 cm; Wt 81.8 kg
[2017-06-23 14:53] VITALS: BP 123/80; Ht 160 cm; Wt 81.8 kg
== END | disposition home or self-care (01) ==
LOC: D.OPS 10:25
DX: T84.59XA Infection and inflammatory reaction due to other internal joint prosthesis, initial encounter (principal)

== ENCOUNTER 2017-06-24 10:45 | Outpatient (CLI) | payer MEDICARE ==
[~2017-06-24] VITALS: Ht 160 cm; Wt 81.8 kg
[2017-06-24 12:07] VITALS: Ht 160 cm; Wt 81.8 kg
== END 2017-06-24 12:46 | disposition home or self-care (01) ==
LOC: D.OPS 10:45
DX: T84.59XA Infection and inflammatory reaction due to other internal joint prosthesis, initial encounter (principal)

== ENCOUNTER → 2017-06-25 06:34 | Outpatient (CLI) | payer MEDICARE ==
[2017-06-25 13:36] VITALS: Ht 160 cm
--- NOTE | 2017-06-25 14:06 | NUR ---
1400-INFUSION COMPLETE, FLUSH BILATERAL PICC LINES WITH 10CC NS AND 5CC/500U HEPARIN. 1406-PT. LEFT WITH PERSONAL WHEELCHAIR WITH GRANDDAUGHTER AT SIDE.
== END | disposition home or self-care (01) ==
LOC: D.OPS 06:34
DX: T84.59XA Infection and inflammatory reaction due to other internal joint prosthesis, initial encounter (principal)

== ENCOUNTER 2017-06-26 13:25 | Outpatient (CLI) | payer MEDICARE ==
[~2017-06-26] VITALS: Ht 160 cm; Wt 81.8 kg
[2017-06-26 14:04] VITALS: BP 125/77; Ht 160 cm; Wt 81.8 kg
--- NOTE | 2017-06-26 14:10 | NUR ---
1358 LEFT ARM PICC SITE NO REDNESS OR SWELLING ANTIBIOTIC STRATED BY BECKIE Saunders INFUSING VIA LEFT ARM WITHOUT PROBLEMS.
--- NOTE | 2017-06-26 15:03 | NUR ---
1428 COMPLETED ANTIBIOTIC. PICC LINE DRESSING CHANGED WITH STERILE TECHNIQUE WITH STERILE TECHNIQUE. PORTS BOTH CHANGED AND CAPS ON TOLERATED IT WELL.
--- NOTE | 2017-06-26 15:04 | NUR ---
1445 DISCHARGE INSTRUCTIONS GIVEN TOLD TO GO TO THE ER FOR TOMORROWS ANTIBIOTIC.
--- NOTE | 2017-06-26 15:05 | NUR ---
1455 TO HOME VIA W/C WITH FAMILY.
== END 2017-06-26 14:45 | disposition home or self-care (01) ==
LOC: D.OPS 13:25
DX: T84.59XA Infection and inflammatory reaction due to other internal joint prosthesis, initial encounter (principal)

== ENCOUNTER 2017-06-27 10:55 | Outpatient (CLI) | payer MEDICARE ==
[~2017-06-27] VITALS: Ht 160 cm; Wt 81.8 kg
--- NOTE | 2017-06-27 11:30 | NUR ---
RECEIVED TO ROOM 2232 FOR OUTPATIENT IV ANTIBIOTIC INFUSION.
[2017-06-27 12:01] VITALS: BP 114/71; Ht 160 cm; Wt 81.8 kg
--- NOTE | 2017-06-27 12:07 | NUR ---
CUBICIN INFUSION STARTED TO L PICC LINE.
[2017-06-27 12:09] VITALS: BP 114/71
--- NOTE | 2017-06-27 12:40 | NUR ---
INFUSION COMPLETE. PICC LINE FLUSHED WITH SALINE. DISCHARGE TEACHING GIVEN TO PATIENT. VOICED UNDERSTANDING TO RETURN TOMORROW FOR NEXT DOSE.
[2017-07-09] MEDS ORDERED: CYCLOBENZAPRINE10 MG PO (13:30)
== END 2017-06-27 12:40 | disposition home or self-care (01) ==
LOC: D.MS 10:55 → D.OPS 10:55
DX: T84.59XA Infection and inflammatory reaction due to other internal joint prosthesis, initial encounter (principal)

== ENCOUNTER 2017-06-28 10:31 | Outpatient (CLI) | payer MEDICARE ==
[~2017-06-28] VITALS: Ht 160 cm; Wt 81.8 kg
--- NOTE | 2017-06-28 10:45 | NUR ---
RECIEVED TO ROOM 2232 VIA WC FOR LAST DOSE OF ANTIBIOTIC. FAMILY AT BEDSIDE.
[2017-06-28 11:46] VITALS: Ht 160 cm; Wt 81.8 kg
--- NOTE | 2017-06-28 11:47 | NUR ---
DAPTOMYICIN INFUSION STARTED AT 200 CC/HR VIA PUMP TO L PICC LINE. DENIES ANY NEEDS AT THIS TIME. FAMILY AT BEDSIDE.
--- NOTE | 2017-06-28 12:39 | NUR ---
DAPTOMYICIN INFUSION COMPLETE. PATIENT CARE ASSISTANT, PRIYA, NOTIFIED OF NEED TO PULL PICC LINE BEFORE PATIENT CAN BE DC'D. STATES SHE WILL BE HERE SOON POSSIBLE. PATIENT NOTIFIED AND VOICED UNDERSTANDING.
--- NOTE | 2017-06-28 13:30 | NUR ---
DC'D HOME WITH FAMILY. ESCORTED TO VEHICLE VIA WC WITH BELONGINGS.
[2017-07-09] MEDS ORDERED: CYCLOBENZAPRINE10 MG PO (13:30)
== END 2017-06-28 13:30 | disposition home or self-care (01) ==
LOC: D.OPS 10:31 → D.MS 10:31 → D.OPS 13:30
DX: T84.59XA Infection and inflammatory reaction due to other internal joint prosthesis, initial encounter (principal)

== ENCOUNTER 2017-07-13 09:00 | Inpatient (IN) | payer MEDICARE ==
[2017-07-09 14:28] LABS: BASOPHILS 0.2 % (0-2); EOSINOPHILS 5.4 % (0-7); HEMATOCRIT 35.9 % (36.0-48.0); HEMOGLOBIN 11.1 g/dL (12-16); LYMPHOCYTES 31.4 % (15-50); MCH 27.2 pg (26.0-34.0); MCHC 30.9 g/dL (31.0-37.0); MEAN PLATELET VOLUME 10.2 fL (7.4-10.4); MONOCYTES 6.9 % (2-11); NEUTROPHILS 56.1 % (40-80); PLATELET COUNT 213 10x3/uL (130-400); RBC 4.08 10x6/uL (4.00-5.40); RDW 16.2 % (11.5-14.5); WBC 4.1 10x3/uL (4.8-10.8)
[2017-07-09 14:40] LABS: ANION GAP 12.2 mmol/L (8-16); CALCIUM 9.2 mg/dL (8.5-10.1); CARBON DIOXIDE 28.1 mmol/L (21.0-32.0); POTASSIUM - SERUM 4.3 mmol/L (3.5-5.1)
[2017-07-09 14:41] LABS: APTT 27.6 SECONDS (22.8-39.4); INR 0.93 (0.85-1.17); PROTIME 12.3 SECONDS (11.6-15.0)
[~2017-07-13] VITALS: Ht 160 cm; Wt 81.6 kg
[2017-07-13] VITALS (8 sets, daily range): BP systolic 118–149; BP diastolic 80–98; BMI 31.9
--- NOTE | ~2017-07-13 | OP ---
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 PROCEDURES: 1. Removal of previously placed cement spacer. 2. Revision total hip hemiarthroplasty of the right hip. SURGEON: Mehreen Davis MD. ANESTHESIA: General. INTRAOPERATIVE COMPLICATIONS: None. SUMMARY OF PATHOLOGIC FINDINGS: The wound bed did appear to be completely devoid of any type of infectious material. OPERATIVE SUMMARY IN DETAIL: After obtaining the appropriate preoperative surgery consent as well as anesthetic consultation, evaluation and clearance, the patient was brought to the operating room and placed on the operating table in supine position. After general laryngeal mask airway was administered, the patient was placed in left lateral decubitus position. All pressure points were padded to include down leg peroneal pad as well as axillary roll. The patient was held firmly to the operating table using the vacuum pack suction system. Right lower extremity and hip were then prepped and draped in routine sterile fashion. The previously used incision was incised again over the greater trochanter and taken down to the level of the greaer trochanter. The gluteus medius minimus were reflected anteriorly. This was taken down to the hip capsule itself. The hip was reduced and the previously placed cement spacer was taken out with little degree of difficulty. At this point, serial and sequential reaming was done to a size 68 for the confucianism anatomic cup with using the eccentric insert 36 x 0.6 mm with a 10-degree hooded. This did have good capture; however, it was screwed into place in 4 separate places for extra stability. When it was felt that the acetabulum and polyethylene was in good overall position, attention was turned to the femur. Serial and sequential reaming was done for a size 14 x 195 bowed stem from the confucianism modular system. Proximal reaming was to a size 19, size 19+10 trial was most appropriate. Size 19+10 trial with a standard ceramic head was put into place and reduced. Radiographs taken showed confucianism of length compared to the contralateral side. At this point, the wound was copiously irrigated and closed using #5 Ethibond followed by #2 Ethibond, #1 Vicryl, 2-0 Vicryl and skin wendy. Sterile dressings were applied. The patient was awakened, taken to recovery room in stable condition. All final needle and sponge counts were correct. TRANSINT:[id number] Voice Confirmation ID: [id number] DOCUMENT ID: [id number] OPERATIVE REPORT [id number] BHAVIN ENRIQUEZ MD, MEHREEN ADAMS CC: [id number] DICTATION DATE: 07/13/17 1434 CIGAR PATCHER: 07/13/17 1929 ADM IN [facility] [address] [id number]
[~2017-07-13 09:00] MED LIST changes: +CYCLOBENZAPRINE10 MG PO
[2017-07-13 12:42] LABS: APPEARANCE CLEAR (CLEAR); BACTERIA FEW /hpf (NONE SEEN); BILIRUBIN NEGATIVE (NEGATIVE); COLOR YELLOW (YELLOW); EPITHELIAL CELLS 0-5 /hpf (0-5); GLUCOSE NEGATIVE (NEGATIVE); HYALINE CAST OCC /lpf (NONE SEEN); KETONE NEGATIVE (NEGATIVE); LEUKOCYTE ESTERASE TRACE (NEGATIVE); MUCUS <1+ /lpf (NONE SEEN); NITRITE NEGATIVE (NEGATIVE); PROTEIN TRACE mg/dL (NEGATIVE); SPECIFIC GRAVITY 1.015 (1.005-1.020); UROBILINOGEN NORMAL (NORMAL); WAXY CAST RARE /lpf (NONE SEEN); WHITE CELLS - URINE OCC /hpf (0-5); YEAST <1+ /hpf (NONE SEEN)
--- NOTE | 2017-07-13 19:13 | NUR ---
PT IS LYING IN BED WITH EYES CLOSED, EVEN RISE AND FALL OF CHEST, NC IS NOT IN PT'S NOSTRIL BUT ON BRIM BETWEEN NOSTRIL AND EYES. PT SPO2 IS AT 98. EASILY AROUSED AT THE SOUND OF ME TALKING TO HER, NO SIGNS OF DISTRESS, WILL CONTINUE TO MONITOR AND FOLLOW PLAN OF CARE
[2017-07-14] VITALS: BP 91/46
--- NOTE | 2017-07-14 02:25 | NUR ---
PT IS LYING IN BED WANT TO KNOW WHEN SHE CAN START GETTING UP TO WALK, ADVISED PT WILL MOST LIKELY SEE PT IN THE [facility]. NO OTHER COMPLAINTS AT THIS TIME. BED IN LOW POSITION, CALL LIGHT IN REACH
[2017-07-14 04:00] VITALS: BP 133/77
--- NOTE | 2017-07-14 06:15 | NUR ---
PT CALLED ME INTO HER ROOM AND STATED SHE HAD ANOTHER EPISODE A FEW MINUTES AGO THAT SEEMED TO HAVE LASTED 5 MINUTES WHERE HER WHOLE BODY WAS SHAKING FROM HEAD TO TOE. HER SPEECH IS CLEAR, NO SIGNS OF EXACERBATION, PERRLA, ASKED IF SHE FELT DRAINED OR TIRED, STATED SHE FELT JUST FINE. PT STATED THIS HAS HAPPENED ONCE BEFORE WHILE AT HOME BUT NEVER REPORTED TO ANYONE ELSE. ADVISED PT WILL MAKE NOTE OF INCIDENT AND PASS ALONG TO ONCOMING NURSE. BED IN LOW POSITION, CALL LIGHT IN REACH, WILL CONTINUE TO MONITOR
[2017-07-14 06:44] LABS: HEMATOCRIT 29.7 % (36.0-48.0); HEMOGLOBIN 9.5 g/dL (12-16); MCH 27.9 pg (26.0-34.0); MCV 87.1 fL (80.0-100.0); MEAN PLATELET VOLUME 10.5 fL (7.4-10.4); RBC 3.41 10x6/uL (4.00-5.40); RDW 16.2 % (11.5-14.5); WBC 8.4 10x3/uL (4.8-10.8)
--- NOTE | 2017-07-14 07:30 | NUR ---
RECIVEVED PT DURING WALKING ROUNDS. PT RESTING IN BED WITH NO COMPLAINTS OF PAIN OR DISCOMFORT AT THIS TIME. ASSESSMENT DONE PER FLOWSHEET. BED IN LOW POSITION AND CALL LIGHT WITHIN REACH. WILL CONTINUE TO MONITOR.
[2017-07-14 08:58] VITALS: BP 123/71
[2017-07-14 10:53] VITALS: Ht 160 cm; Wt 81.6 kg
[2017-07-14 13:07] VITALS: BP 128/75
--- NOTE | 2017-07-14 13:13 | NUR ---
Patient Name: BHAVIN DIAS Admission Status: Elective Accout number: [id number] Admission Date: 07-13-2017 : 1955 Admission Diagnosis: Attending: MEHREEN DAVIS Current LOS: 1 Anticipated DC Date: Planned Disposition: Home with Home Health Primary Insurance: [facility] Discharge Planning Comments: CM met with patient to assess discharge planning needs. Patient currently lives independently with her family, where she plans to return at discharge. Patient stated that either her son or daughter will be the one to take her home. She has a ramp to enter in her home with an electric wheelchair, bedside commode, elevated toilet seat and walker. She is not current with any HH at this time but would like to use [facility]. YAEL signed and placed in chart. CM will continue to follow and assist as needed. PCP: Cindy Calderon in [place] Mickey Dias (son) Maria Teresa Arredondo (daughter) Commercial Banker: Megan Bryan * Is the patient Alert and Oriented? Yes 0 * How many steps to enter\exit or inside your home? RAMP 0 * PCP CINDY 0 * Pharmacy [facility] [place] 0 * Preadmission Environment Home with Family 0 * ADLs Independent 0 * Equipment Bedside Commode Elevated [place] Seat Rolling Walker Wheelchair 0 * List name and contact numbers for known caregivers / representatives who currently or will assist patient after discharge: MICKEY DIAS (SON) MARIA TERESA ARREDONDO (DAUGHTER) 0 * Community resources currently utilized None 0 * Additional services required to return to the preadmission environment? Yes 0 * Can the patient safely return to the preadmission environment? Yes 0 * Has this patient been hospitalized within the prior 30 days at any hospital? No 0 Grand Total: 0
[2017-07-14 15:41] VITALS: BP 98/60
--- NOTE | 2017-07-14 19:50 | NUR ---
PT MULTIMEDIA COORDINATOR LIGHT FOR ASSISSTANCE TO BSC. PT AMBULATES WELL WITH ASSIST, BED IN LOW POSITION, CALL LIGHT IN REACH, NO SIGNS OF DISTRESS. WILL CONTINUE TO MONITOR AND FOLLOW PLAN OF CARE
[2017-07-15] VITALS: BP 98/53
[2017-07-15 04:00] VITALS: BP 125/69
--- NOTE | 2017-07-15 04:07 | NUR ---
PATIENT RESTING IN BED AND DENIES NEEDS AT THIS TIME. NO VISIBLE SIGNS OF DISTRESS NOTED. BED IN LOWEST POSITION AND CALL LIGHT WITHIN REACH. ENCOURAGED THE PATIENT TO CALL IF SHE HAS NEEDS.
[2017-07-15 05:58] LABS: HEMATOCRIT 26.5 % (36.0-48.0); HEMOGLOBIN 8.6 g/dL (12-16); MCH 27.7 pg (26.0-34.0); MCHC 32.5 g/dL (31.0-37.0); MCV 85.2 fL (80.0-100.0); MEAN PLATELET VOLUME 10.3 fL (7.4-10.4); RBC 3.11 10x6/uL (4.00-5.40); RDW 16.3 % (11.5-14.5)
[2017-07-15 06:18] LABS: WBC 5.3 10x3/uL (4.8-10.8)
--- NOTE | 2017-07-15 07:45 | NUR ---
ASSESSMENT COMPLETE. SL TO R AC PATENT. DRESSING TO R HIP C/D/I. DENIES ANY COMPLAINT OF PAIN AT THIS TIME.
[2017-07-15 08:36] VITALS: BP 107/56
[2017-07-15 12:15] VITALS: BP 116/72
--- NOTE | 2017-07-15 14:50 | NUR ---
PERCOCET GIVEN FOR COMPLAINT OF HIP PAIN.
[2017-07-15 15:57] VITALS: BP 119/81
--- NOTE | 2017-07-15 18:09 | NUR ---
NO CHANGES NOTED AT PRESENT.
[2017-07-15 20:00] VITALS: BP 123/72
--- NOTE | 2017-07-15 21:40 | NUR ---
ASSISTED PATIENT BACK TO BED FROM THE BEDSIDE COMMODE. PATIENT DENIES FURTHER NEEDS AT THIS TIME. BED IN LOWEST POSITION, CALL LIGHT IN REACH. BED RAILS UP X'S 2.
--- NOTE | 2017-07-15 22:30 | NUR ---
PT KEY HOLDER LIGHT FOR ASSISTANC ETO RESTROOM, WHEN ASSISTING PT UP HER PAD ON BED AND GOWN COVERED IN BLOOD. ASSSITED PT TO BSC, CHANGED LINENS AND ASSISTED BACK TO BED TTHEN CHANGED DRESSING. PT SURGICAL SITE CLEAN AND INTACT. GABRIEL MIDSITE, CLOSE TO KNEE ARE LEAKING. CLEANED WITH WOUND BRANCH SERVICE REPRESENTATIVE AND REAPPLIED MEPILEX, GAUZE AND ABD DRESSING. NO OTHER NEEDS AT THIS TIME WILL CONTINUE TO MONITOR SITE
[2017-07-16] VITALS: BP 120/82
--- NOTE | 2017-07-16 00:22 | NUR ---
PT IS LYING IN BED WITH HOB AT 30, PT PLAYING BINGO ON IPAD. NO SIGNS OF DISTERESS, NO NEEDS AT THIS TIME, BED IN LOW POSITION, CALL LIGHT IN REACH
[2017-07-16 04:00] VITALS: BP 113/70
[2017-07-16 07:59] VITALS: BP 114/71
--- NOTE | 2017-07-16 08:00 | NUR ---
ASSESSMENT COMPLETE. SL TO R AC PATENT. DRESSING TO R HIP C/D/I. BED ALARM IN USE. DENIES ANY NEEDS AT THIS TIME.
--- NOTE | 2017-07-16 09:30 | NUR ---
REFUSING TO WEAR SCD'S. STATES THEY MAKE HER ITCH.
[2017-07-16 09:34] LABS: HEMATOCRIT 26.2 % (36.0-48.0); HEMOGLOBIN 8.5 g/dL (12-16)
--- NOTE | 2017-07-16 10:59 | NUR ---
NUTRITION F/U CHART REVIEWED, PT VISIT. TOLERATING ADA DIET.~25% INTAKE BREAKFAST. PT STATES "JUST NOT VERY HUNGRY". WILL CONTINUE TO PROVIDE DIET, MONITOR INTAKE. RD FOLLOWING
[2017-07-16 11:46] VITALS: BP 117/73
--- NOTE | 2017-07-16 14:10 | NUR ---
PRBC INFUSION STARTED. VSS. DENIES ANY NEEDS AT THIS TIME.
--- NOTE | 2017-07-16 17:05 | NUR ---
PRBC INFUSION COMPLETE. VSS. COMPLAINING OF LEGS FEELING HOT. REDNESS NOTED TO BLE. TEMP 99.5. DENIES ANY NEEDS AT THIS TIME. BED ALARM IN USE.
[2017-07-16 20:00] VITALS: BP 140/86
[2017-07-17] VITALS: BP 113/58
[2017-07-17 03:43] VITALS: BP 127/72
[2017-07-17 08:13] LABS: HEMATOCRIT 28.6 % (36.0-48.0); HEMOGLOBIN 9.5 g/dL (12-16)
--- NOTE | 2017-07-17 08:15 | NUR ---
ASSESSMENT COMPLETE. SL TO R AC PATENT. DRESSING TO R HIP INTACT. REFUSING TO WEAR SCD'S. BED ALARM IN USE.
[2017-07-17 08:18] VITALS: BP 124/83
[2017-07-17] MEDS ORDERED: ELIQUIS2.5 MG PO (09:10)
[2017-07-17] MEDS ORDERED: CLEOCIN HCL300 MG PO (09:11)
--- NOTE | 2017-07-17 10:04 | NUR ---
PATIENT BEING DISCHARGED HOME TODAY. REFERRAL SENT TO [facility]. PATIENT DAUGHTER WILL BE THE ONE TO DRIVE HER HOME. AUDREY GROVE
--- NOTE | 2017-07-17 11:05 | NUR ---
DISCHARGE TEACHING GIVEN TO PATIENT. DRESSING TO R HIP CHANGED. GABRIEL INTACT TO INCISION. BLEEDING NOTED TO UPPER PART OF INCISION. AQUACEL AG DRESSING APPLIED AND REINFORCED WITH 4X4S AND TAPE. SCRIPTS FOR CLINDAMYICIN,ELIQUIS AND PERCOCET GIVEN TO PATIENT.
--- NOTE | 2017-07-17 11:25 | NUR ---
DC'D HOME WITH FAMILY. ESCORTED TO VEHICLE BY VOLUNTEER VIA WC WITH BELONGINGS.
== END 2017-07-17 11:25 | disposition home health service (06) | DRG 467 ==
LOC: D.MS 09:00 → D.SDCHOLD 09:00 → D.MS 15:10
PROVIDERS: ADMIT Orthopaedic Surgery
PROC: 0SP908Z Removal of Spacer from Right Hip Joint, Open Approach (ICD-10-PCS; 2017-07-13)
PROC: 0SRA03Z Replacement of Right Hip Joint, Acetabular Surface with Ceramic Synthetic Substitute, Open Approach (ICD-10-PCS; principal; 2017-07-13 11:00)
DX: Z47.32 Aftercare following explantation of hip joint prosthesis (principal); D62 Acute posthemorrhagic anemia; I10 Essential (primary) hypertension; E11.40 Type 2 diabetes mellitus with diabetic neuropathy, unspecified

== ENCOUNTER → 2017-07-27 13:38 | Outpatient (CLI) | payer MEDICARE ==
[2017-07-14 10:53] VITALS: BMI 31.8
[~2017-07-27 13:38] MED LIST changes: +CLEOCIN HCL300 MG PO
== END | disposition home or self-care (01) ==
LOC: D.LABREF 13:38
DX: M25.552 Pain in left hip (principal)

== ENCOUNTER → 2018-01-25 12:13 | Outpatient (CLI) | payer MEDICARE ==
[2017-07-14 10:53] VITALS: BMI 31.8
[~2018-01-25 12:13] MED LIST changes: +LEVOXYL25 MCG PO; +MAG-OX 400 MG400 MG PO
== END | disposition home or self-care (01) ==
LOC: D.LABREF 12:13
DX: M25.511 Pain in right shoulder (principal); Z11.8 Encounter for screening for other infectious and parasitic diseases

== ENCOUNTER → 2018-01-28 08:49 | Outpatient (CLI) | payer MEDICARE ==
[2017-07-14 10:53] VITALS: BMI 31.8
== END | disposition home or self-care (01) ==
LOC: D.MRI 08:49
DX: M25.511 Pain in right shoulder (principal)

== ENCOUNTER 2018-02-22 10:25 | Day surgery (SDC) | payer MEDICARE ==
[2018-02-19 10:31] LABS: HEMATOCRIT 30.5 % (36.0-48.0); HEMOGLOBIN 9.4 g/dL (12-16); MCH 24.5 pg (26.0-34.0); MCHC 30.8 g/dL (31.0-37.0); MCV 79.6 fL (80.0-100.0); MEAN PLATELET VOLUME 9.6 fL (7.4-10.4); RBC 3.83 10x6/uL (4.00-5.40); RDW 18.6 % (11.5-14.5); WBC 8.3 10x3/uL (4.8-10.8)
[~2018-02-22] VITALS: Ht 160 cm; Wt 78.5 kg
--- NOTE | ~2018-02-22 | OP ---
PATIENT NAME: BHAVIN ENRIQUEZ MEDICAL RECORD: [id number] :53 LOCATION:[facility] ADMISSION DATE: SURGEON: MEHREEN DAVIS MD DATE OF OPERATION: 02/22/2018 PREOPERATIVE DIAGNOSIS: Nonrepairable rotator cuff tear. POSTOPERATIVE DIAGNOSIS: Nonrepairable rotator cuff tear. PROCEDURE: Right shoulder superior capsular reconstruction that is capsulorrhaphy with rotator cuff repair. SURGEON: Mehreen Davis MD ANESTHESIA: General. INTRAOPERATIVE COMPLICATIONS: None. SUMMARY OF PATHOLOGIC FINDINGS: The patient did indeed have a very large rotator cuff tear only a paucity of subscap remained; however, it was attached, and some infraspinatus and teres minor were also brought up to the wide dermal graft. OPERATIVE SUMMARY IN DETAIL: After obtaining appropriate orthopedic surgery consent as well as anesthetic consultation, evaluation and clearance, the patient was brought to the operating room and placed on the operating table in supine. After adequate general laryngeal mask was administered, the patient was placed in beach chair position. All pressure points were well padded. She was held firmly to the operating table using the vacuum pack suction system. Anterior lateral approach was made from the acromioclavicular joint across the anterior aspect of the acromion and down the deltoid approximately 2 cm, a subperiosteal dissection of the deltoid was done all the way to the AC joint, distal clavicle was excised for 1 cm and a formal subacromial decompression was performed. The superior aspect of the glenoid was prepared for the SCR graft by taking down the upper aspect of the labrum. Good bony exposure was achieved. Three 2x9 SutureTaks were put into place. The graft was taken to the backtable and appropriately trimmed after measurements were taken. Scorpion was then used to pass all 6 tails of the SutureTaks and the graft was parachuted down and these 2 tied nicely across the superficial rim of the glenoid. At this point, the arm was placed in approximately 30 degrees of abduction with about 10 degrees of forward flexion. The greater tuberosity was essentially taken down with tuberoplasty in preparation for placement of the graft. SpeedBridge from [employer] was utilized to secure the graft and at this previously mentioned angle, the subscapularis was reapproximated to the anterior aspect of the graft using a 0 FiberWire as well as some portions of the posterior infraspinatus, teres minor to the posterior aspect of the graft again using a FiberWire. Wound was then copiously irrigated. The deltoid was reapproximated back to the acromion and an imbricated [id number] style suture using #2 Ethibond followed by #1 Vicryl, 2-0 Vicryl, and skin wendy. Sterile dressings were applied. The patient was placed in a large pillow abduction splint. She was awakened and taken to recovery in stable condition. All final needle and sponge counts were correct. TRANSINT:[id number] Voice Confirmation ID: [id number] DOCUMENT ID: [id number] OPERATIVE REPORT [id number] BHAVIN ENRIQUEZ MD, MEHREEN ADAMS at 1341 CC: [id number] DICTATION DATE: 03/01/182305 PAYROLL BENEFITS CLERK: 03/02/18 0952 [facility] 02/22/18 [place] [id number] [place] [address]
[2018-02-22 10:48] VITALS: BP 114/81; Ht 160 cm; Wt 78.5 kg
[2018-02-22 12:02] LABS: ANION GAP 14.6 mmol/L (8-16); CALCIUM 9.5 mg/dL (8.5-10.1); POTASSIUM - SERUM 4.6 mmol/L (3.5-5.1)
[2018-02-22] MEDS ORDERED: PERCOCET 10/3251 TA1 PO (17:17)
== END 2018-02-22 19:30 | disposition home or self-care (01) ==
LOC: D.OPS 10:25 → D.PAN 14:15 → D.OPS 19:30
PROVIDERS: Anesthesiology
DX: S46.011A Strain of muscle(s) and tendon(s) of the rotator cuff of right shoulder, initial encounter (principal); I10 Essential (primary) hypertension; E11.9 Type 2 diabetes mellitus without complications; E66.01 Morbid (severe) obesity due to excess calories; Z01.812 Encounter for preprocedural laboratory examination

== ENCOUNTER 2018-05-20 20:06 | Observation (INO) | payer MEDICARE ==
[~2018-05-20] VITALS: Ht 160 cm; Wt 83.5 kg
[2018-05-20 22:00] VITALS: BP 100/63
[2018-05-20 22:13] LABS: BASOPHILS 0 % (0-2); EOSINOPHILS 0.7 % (0-7); HEMATOCRIT 28.1 % (36.0-48.0); HEMOGLOBIN 8.8 g/dL (12-16); IMMATURE GRANULOCYTES 0.4 % (0-5); LYMPHOCYTES 8.3 % (15-50); MCH 24.5 pg (26.0-34.0); MCHC 31.3 g/dL (31.0-37.0); MCV 78.3 fL (80.0-100.0); MEAN PLATELET VOLUME 10.2 fL (7.4-10.4); MONOCYTES 8.2 % (2-11); NEUTROPHILS 82.4 % (40-80); PLATELET COUNT 218 10x3/uL (130-400); RBC 3.59 10x6/uL (4.00-5.40); RDW 16.2 % (11.5-14.5); WBC 13.7 10x3/uL (4.8-10.8)
[2018-05-20 22:59] LABS: APPEARANCE CLEAR (CLEAR); BILIRUBIN 1+ (NEGATIVE); COLOR DK YELLOW (YELLOW); GLUCOSE NEGATIVE (NEGATIVE); KETONE NEGATIVE (NEGATIVE); NITRITE NEGATIVE (NEGATIVE); PROTEIN 1+ mg/dL (NEGATIVE); UROBILINOGEN NORMAL (NORMAL)
[2018-05-20 23:00] VITALS: BP 112/55
[2018-05-20 23:00] LABS: WHITE CELLS - URINE 0-5 /hpf (0-5)
[2018-05-20 23:01] LABS: AMORPHOUS SEDIMENT >1+ /lpf (NONE SEEN); BACTERIA FEW /hpf (NONE SEEN)
[2018-05-20 23:25] LABS: ALBUMIN 2.5 g/dL (3.4-5.0); ALKALINE PHOSPHATASE 133 U/L (46-116); ALT (SGPT) 17 U/L (10-68); BILIRUBIN - TOTAL 0.25 mg/dL (0.2-1.3); CALC OSMOLALITY 287 mosm/kg (275-300); CALCIUM 8.5 mg/dL (8.5-10.1); CARBON DIOXIDE 24.1 mmol/L (21.0-32.0); CHLORIDE - SERUM 95 mmol/L (98-107); CREATININE - SERUM 4.7 mg/dL (0.6-1.3); GLUCOSE 140 mg/dL (74-106); POTASSIUM - SERUM 3.7 mmol/L (3.5-5.1); PROTEIN - SERUM 6.9 g/dL (6.4-8.2); SODIUM 135 mmol/L (136-145); UREA NITROGEN 56 mg/dL (7-18); eGFR NON AFRICAN AMERICAN 10 mL/min (90-120)
[2018-05-20 23:27] LABS: AMYLASE - SERUM 50 U/L (25-115); CREATINE KINASE 113 UL (21-215); LIPASE 109 U/L (73-393); TROPONIN-I < 0.017 ng/mL (0.000-0.060)
[2018-05-20 23:32] LABS: % SATURATION 5 % (15-55); IRON 16 ug/dl (35-150); TOTAL IRON BIND CAPACITY 284 ug/dl (260-445); UNSAT IRON BIND CAPACITY 268 ug/dl (150-375)
[2018-05-21] VITALS (10 sets, daily range): BP systolic 92–140; BP diastolic 50–69; Ht 160 cm; Wt 83.5 kg
[2018-05-21 15:22] LABS: % SATURATION 3 % (15-55); IRON 10 ug/dl (35-150); TOTAL IRON BIND CAPACITY 258 ug/dl (260-445); UNSAT IRON BIND CAPACITY 248 ug/dl (150-375)
[2018-05-22 04:00] VITALS: BP 100/64
[2018-05-22 05:32] LABS: BASOPHILS 0 % (0-2); EOSINOPHILS 3.6 % (0-7); HEMATOCRIT 25.7 % (36.0-48.0); HEMOGLOBIN 7.9 g/dL (12-16); IMMATURE GRANULOCYTES 1.2 % (0-5); MCH 23.9 pg (26.0-34.0); MCHC 30.7 g/dL (31.0-37.0); MCV 77.9 fL (80.0-100.0); MEAN PLATELET VOLUME 10.1 fL (7.4-10.4); MONOCYTES 5.7 % (2-11); NEUTROPHILS 69.5 % (40-80); PLATELET COUNT 185 10x3/uL (130-400); RDW 16.2 % (11.5-14.5)
[2018-05-22 05:51] LABS: WBC 5.1 10x3/uL (4.8-10.8)
[2018-05-22 05:57] LABS: ALBUMIN 2.2 g/dL (3.4-5.0); ANION GAP 11.7 mmol/L (8-16); BILIRUBIN - TOTAL 0.17 mg/dL (0.2-1.3); CALCIUM 8.7 mg/dL (8.5-10.1); CARBON DIOXIDE 27.9 mmol/L (21.0-32.0); POTASSIUM - SERUM 3.6 mmol/L (3.5-5.1); PROTEIN - SERUM 6.3 g/dL (6.4-8.2)
[2018-05-22 07:45] VITALS: BP 110/64
[2018-05-22 11:42] VITALS: BP 113/66
[2018-05-22] MEDS ORDERED: PROTONIX40 MG PO (12:11)
[2018-05-22] MEDS ORDERED: MIRALAX527 GM PO (12:12)
[2018-05-24 10:12] LABS: FOLATE (FOLIC ACID) - SERUM 18.3 ng/mL (>3.0)
[2018-07-01] MEDS ORDERED: OMEPRAZOLE40 MG PO (12:04)
[2018-07-01] MEDS ORDERED: EZFE 200200 MG PO (12:05)
== END 2018-05-22 15:44 | disposition home or self-care (01) ==
LOC: D.ER 20:06 → D.EDHOLD 05-21 00:31 → OBSVTIME 05-21 00:31 → D.M2 05-21 00:31
PROVIDERS: Family Medicine; Internal Medicine Nephrology
DX: I95.9 Hypotension, unspecified (principal); N17.9 Acute kidney failure, unspecified; R55 Syncope and collapse; E86.9 Volume depletion, unspecified; I10 Essential (primary) hypertension; F32.9 Major depressive disorder, single episode, unspecified; E11.42 Type 2 diabetes mellitus with diabetic polyneuropathy; D50.9 Iron deficiency anemia, unspecified

== ENCOUNTER 2018-05-28 09:32 | Outpatient (CLI) | payer MEDICARE ==
[~2018-05-28] VITALS: Ht 160 cm; Wt 83.6 kg
[~2018-05-28 09:32] MED LIST changes: +MIRALAX527 GM PO; +PROTONIX40 MG PO
[2018-05-28 11:43] VITALS: BP 148/81; Ht 160 cm; Wt 83.6 kg
[2018-07-01] MEDS ORDERED: OMEPRAZOLE40 MG PO (12:04)
[2018-07-01] MEDS ORDERED: EZFE 200200 MG PO (12:05)
== END 2018-05-28 16:25 | disposition home or self-care (01) ==
LOC: D.OPS 09:32
DX: D64.9 Anemia, unspecified (principal); Z01.812 Encounter for preprocedural laboratory examination

== ENCOUNTER 2018-07-05 07:00 | Inpatient (IN) | payer MEDICARE ==
[~2018-07-05] VITALS: Ht 160 cm; Wt 90.0 kg
--- NOTE | ~2018-07-05 | OP ---
PATIENT NAME: BHAVIN ENRIQUEZ MEDICAL RECORD: [id number] :53 LOCATION:[facility] ADMISSION DATE:07/05/18 SURGEON: MEHREEN DAVIS MD DATE OF OPERATION: 07/05/2018 PREOPERATIVE DIAGNOSIS: Failed superior capsular reconstruction with chronic rotator cuff arthropathy. POSTOPERATIVE DIAGNOSIS: Failed superior capsular reconstruction with chronic rotator cuff arthropathy. PROCEDURE: Right reverse total shoulder arthroplasty. SURGEON: Mehreen Davis MD ANESTHESIA: General. INTRAOPERATIVE COMPLICATIONS: None. SUMMARY OF PATHOLOGIC FINDINGS: The superior capsular reconstruction failed anteriorly. The patient had anterior escape. The posterior aspect of the superior reconstruction was in excellent overall condition. However, given the profound superior escape and pain and inability to use the shoulder, decision was made to proceed with reverse total shoulder arthroplasty. COMPONENTS USED: Tornier Aequalis Ascend Flex long total shoulder arthroplasty, standard baseplate, standard glenosphere, polyethylene thickness is a +6. ESTIMATED BLOOD LOSS: 200 cc. OPERATIVE SUMMARY IN DETAIL: After obtaining the appropriate preoperative orthopedic surgery consent as well as anesthetic consultation, evaluation, and clearance, the patient was brought to the operating room and placed on the operating table in supine position. After general laryngeal mask airway was administered, the patient was placed in beach chair position. All pressure points were well padded. She was held firmly to the operating table using the vacuum pack suction system. The patient's right upper extremity and shoulder were then prepped and draped in routine sterile fashion. The arm was held in the Trimano arm holding device. Deltopectoral incision was taken down to the level of the conjoint tendon. Substantial amount of scar tissue was encountered; however, this was freed up and the humeral head was easily subluxed into the incision. The patient's natural retroversion was upwards of 60+, which was a bit unusual for her. A 135-degree head cut was made at 40 degrees of retroversion. After making the cut, serial and sequential reaming and broaching were done for a size 4B long Ascend Flex stem. Trial was put into place. The cut protection guide was then put over and tightened down and the glenoid was approached. Serial and sequential labrectomy was then performed with excellent exposure of the glenoid. Reaming for the standard baseplate was followed by insertion of the standard baseplate. At this point, the [id number] reamer was utilized to make way for the glenosphere. The glenosphere was then tamped into place and tightened down with the central screw for good overall fixation. Having completed this, trials were undertaken corresponding to the above sizes and very stable with no liftoff with abduction, external rotation, internal rotation, flexion, or extension. Trial components were removed. The entire joint cavity was irrigated substantially. The final components were then put OPERATIVE REPORT [id number] BHAVIN ENRIQUEZ into place. Again, trial was undertaken before deciding on the final polyethylene thickness. The final polyethylene thickness put in place and shoulder reduced, taken through range of motion and stable in all planes with no liftoff and good overall stability. At this point, the wound was copiously irrigated. Deltopectoral interval was closed with #1 Vicryl, followed by #1 Vicryl closure for the skin, followed by 2-0 Vicryl and skin wendy. Sterile dressings were applied. The patient was awakened and taken to recovery room in stable condition. All final needle and sponge counts were correct. TRANSINT:[id number] Voice Confirmation ID: [id number] DOCUMENT ID: [id number] SUSAN CORTEZ, MEHREEN ADAMS at 0904 CC: [id number] DICTATION DATE: 07/07/18 08 HIGH SCHOOL SPORTS COACH: 07/07/18 0902 [facility] 07/06/18 [facility] [address] [place] [address]
[~2018-07-05 07:00] MED LIST changes: +EZFE 200200 MG PO; +OMEPRAZOLE40 MG PO
[2018-07-05 09:03] VITALS: BP 131/99; BMI 33.0
[2018-07-05 09:23] LABS: BASOPHILS 0.2 % (0-2); EOSINOPHILS 4.1 % (0-7); HEMATOCRIT 33.5 % (36.0-48.0); HEMOGLOBIN 10.9 g/dL (12-16); IMMATURE GRANULOCYTES 0.2 % (0-5); LYMPHOCYTES 25.3 % (15-50); MCH 25.9 pg (26.0-34.0); MCHC 32.5 g/dL (31.0-37.0); MCV 79.6 fL (80.0-100.0); MEAN PLATELET VOLUME 9.7 fL (7.4-10.4); MONOCYTES 7.1 % (2-11); NEUTROPHILS 63.1 % (40-80); PLATELET COUNT 180 10x3/uL (130-400); RBC 4.21 10x6/uL (4.00-5.40); RDW 18.2 % (11.5-14.5); WBC 5.4 10x3/uL (4.8-10.8)
[2018-07-05 09:36] LABS: CALC OSMOLALITY 288 mosm/kg (275-300); CALCIUM 8.8 mg/dL (8.5-10.1); CARBON DIOXIDE 26.2 mmol/L (21.0-32.0); CHLORIDE - SERUM 109 mmol/L (98-107); CREATININE - SERUM 0.8 mg/dL (0.6-1.3); GLUCOSE 123 mg/dL (74-106); SODIUM 144 mmol/L (136-145); UREA NITROGEN 15 mg/dL (7-18); eGFR NON AFRICAN AMERICAN 76 mL/min (90-120)
[2018-07-05 12:41] VITALS: BP 143/100
[2018-07-05 12:47] VITALS: BP 143/100; Ht 160 cm; Wt 90.0 kg
[2018-07-05 16:03] VITALS: BP 122/77
[2018-07-05 21:46] VITALS: BP 117/71
[2018-07-06] VITALS: BP 136/78
[2018-07-06 04:12] LABS: HEMATOCRIT 30.2 % (36.0-48.0); HEMOGLOBIN 9.5 g/dL (12-16); MCH 25.3 pg (26.0-34.0); MCHC 31.5 g/dL (31.0-37.0); MCV 80.5 fL (80.0-100.0); MEAN PLATELET VOLUME 9.8 fL (7.4-10.4); RBC 3.75 10x6/uL (4.00-5.40); RDW 18.5 % (11.5-14.5); WBC 5.1 10x3/uL (4.8-10.8)
[2018-07-06 08:27] VITALS: BP 124/75
[2018-07-06] MEDS ORDERED: PERCOCET 10/3251 TA1 PO (08:34)
[2018-07-06 12:43] VITALS: BP 153/82
== END 2018-07-06 17:56 | disposition home or self-care (01) | DRG 483 ==
LOC: D.SDCHOLD 07:00 → D.MS 07:00 → D.SDCHOLD 09:30 → D.MS 12:39 → D.SDCHOLD 14:15 → D.MS 07-06 17:56
PROVIDERS: Anesthesiology; Orthopaedic Surgery
PROC: 0RRJ00Z Replacement of Right Shoulder Joint with Reverse Ball and Socket Synthetic Substitute, Open Approach (ICD-10-PCS; principal; 2018-07-05 09:30)
DX: M75.101 Unspecified rotator cuff tear or rupture of right shoulder, not specified as traumatic (principal); E11.40 Type 2 diabetes mellitus with diabetic neuropathy, unspecified; I10 Essential (primary) hypertension; E78.5 Hyperlipidemia, unspecified; N28.9 Disorder of kidney and ureter, unspecified; D50.9 Iron deficiency anemia, unspecified

== ENCOUNTER → 2018-10-18 09:58 | Outpatient (CLI) | payer MEDICARE ==
[2018-07-05 12:47] VITALS: BMI 35.1
== END | disposition home or self-care (01) ==
LOC: D.MRI 09:58
DX: E23.7 Disorder of pituitary gland, unspecified (principal)

== ENCOUNTER → 2018-12-02 17:04 | Outpatient (CLI) | payer MEDICARE ==
[2018-07-05 12:47] VITALS: BMI 35.1
== END | disposition home or self-care (01) ==
LOC: D.MAMMO 10:30
DX: Z12.31 Encounter for screening mammogram for malignant neoplasm of breast (principal)

== ENCOUNTER 2021-04-05 10:15 | Outpatient (CLI) | payer MEDICARE ==
[2020-10-17 21:01] VITALS: BMI 37.2
[~2021-04-05 10:15] MED LIST changes: +HYDROCODON-ACE1 EA10; +LISINOPRIL5 MG PO; +NORVASC10 MG PO; +VITAMIN B-121000 MCG PO
== END 2021-04-05 23:59 | disposition home or self-care (01) ==
LOC: D.MAMMO 10:15
PROVIDERS: ATTEND Nurse Practitioner Family
DX: Z12.31 Encounter for screening mammogram for malignant neoplasm of breast (principal)

== ENCOUNTER 2021-04-12 14:12 | Emergency (ER) | payer MEDICARE ==
[~2021-04-12] VITALS: Ht 160 cm; Wt 90.0 kg
[2021-04-12 14:18] VITALS: Ht 160 cm; Wt 90.0 kg
[2021-04-12 16:48] LABS: BASOPHILS 0.7 % (0-2); EOSINOPHILS 0.4 % (0-7); HEMATOCRIT 36.3 % (36.0-48.0); HEMOGLOBIN 11.7 g/dL (12-16); LYMPHOCYTES 8.5 % (15-50); MCHC 32.4 g/dL (31.0-37.0); MCV 83.3 fL (80.0-100.0); MEAN PLATELET VOLUME 7.5 fL (7.4-10.4); MONOCYTES 9.3 % (2-11); NEUTROPHILS 81.1 % (40-80); PLATELET COUNT 285 10x3/uL (130-400); RBC 4.36 10x6/uL (4.00-5.40); RDW 15.8 % (11.5-14.5)
[2021-04-12 16:55] LABS: CALC OSMOLALITY 276 mosm/kg (275-300); CALCIUM 9.1 mg/dL (8.5-10.1); CARBON DIOXIDE 29.3 mmol/L (21.0-32.0); CHLORIDE - SERUM 100 mmol/L (98-107); CREATININE - SERUM 0.8 mg/dL (0.6-1.3); GLUCOSE 111 mg/dL (74-106); POTASSIUM - SERUM 3.3 mmol/L (3.5-5.1); SODIUM 138 mmol/L (136-145); UREA NITROGEN 12 mg/dL (7-18); eGFR NON AFRICAN AMERICAN 76 mL/min (90-120)
[2021-04-12 17:02] LABS: ALBUMIN 2.9 g/dL (3.4-5.0); ALKALINE PHOSPHATASE 186 U/L (30-120); ALT (SGPT) 16 U/L (10-68); BILIRUBIN - TOTAL 0.67 mg/dL (0.2-1.3); MAGNESIUM - SERUM 1.3 mg/dL (1.8-2.4)
[2021-04-12 17:04] LABS: C-REACTIVE PROTEIN 25.5 mg/dL (0.0-0.9)
[2021-04-12 18:42] VITALS: BP 146/80
== END 2021-04-12 19:57 | disposition other institution (70) ==
LOC: D.ER 14:12
PROVIDERS: Emergency Medicine
DX: M25.552 Pain in left hip (principal); R79.82 Elevated C-reactive protein (CRP); E87.6 Hypokalemia; E83.42 Hypomagnesemia; Z86.73 Personal history of transient ischemic attack (TIA), and cerebral infarction without residual deficits; E11.40 Type 2 diabetes mellitus with diabetic neuropathy, unspecified; I10 Essential (primary) hypertension; K21.9 Gastro-esophageal reflux disease without esophagitis; Z79.84 Long term (current) use of oral hypoglycemic drugs

== ENCOUNTER 2021-04-15 17:27 | Inpatient (IN) | payer MEDICARE ==
[~2021-04-15] VITALS: Ht 160 cm; Wt 109.1 kg
[2021-04-15 17:55] VITALS: BP 177/93
[2021-04-15 18:29] LABS: BASOPHILS 0.7 % (0-2); EOSINOPHILS 1.4 % (0-7); HEMATOCRIT 39.2 % (36.0-48.0); HEMOGLOBIN 12.8 g/dL (12-16); LYMPHOCYTES 12.5 % (15-50); MCH 26.9 pg (26.0-34.0); MCHC 32.8 g/dL (31.0-37.0); MEAN PLATELET VOLUME 7.6 fL (7.4-10.4); MONOCYTES 10.2 % (2-11); NEUTROPHILS 75.2 % (40-80); PLATELET COUNT 282 10x3/uL (130-400); RBC 4.77 10x6/uL (4.00-5.40); RDW 16.1 % (11.5-14.5); WBC 6.1 10x3/uL (4.8-10.8)
[2021-04-15 18:37] LABS: CALC OSMOLALITY 271 mosm/kg (275-300); CALCIUM 9.5 mg/dL (8.5-10.1); CARBON DIOXIDE 28.5 mmol/L (21.0-32.0); CHLORIDE - SERUM 98 mmol/L (98-107); CREATININE - SERUM 0.8 mg/dL (0.6-1.3); GLUCOSE 96 mg/dL (74-106); POTASSIUM - SERUM 3.9 mmol/L (3.5-5.1); SODIUM 136 mmol/L (136-145); UREA NITROGEN 13 mg/dL (7-18); eGFR NON AFRICAN AMERICAN 76 mL/min (90-120)
[2021-04-15 18:52] LABS: ALBUMIN 2.6 g/dL (3.4-5.0); ALKALINE PHOSPHATASE 223 U/L (30-120); ALT (SGPT) 26 U/L (10-68); BILIRUBIN - TOTAL 0.38 mg/dL (0.2-1.3); MAGNESIUM - SERUM 1.3 mg/dL (1.8-2.4); PROTEIN - SERUM 7.2 g/dL (6.4-8.2)
[2021-04-15 20:45] VITALS: BP 172/95
[2021-04-15 21:30] VITALS: BP 169/114
[2021-04-15 23:20] LABS: APTT 33.4 SECONDS (22.8-39.4); INR 1.1 (0.85-1.17); PROTIME 13.2 SECONDS (11.6-15.0)
[2021-04-15 23:21] LABS: D-DIMER-QUANTITATIVE 1.89 ug/mLFEU (0.20-0.54)
[2021-04-15 23:29] LABS: CKMB 1.8 U/L (0.0-3.6); CREATINE KINASE 106 UL (21-215); THYROID STIMULATING HORMONE 0.47 uIU/mL (0.36-3.74)
[2021-04-15 23:30] LABS: C-REACTIVE PROTEIN 20.6 mg/dL (0.0-0.9); TROPONIN-I < 0.017 ng/mL (0.000-0.060)
--- NOTE | 2021-04-15 23:38 | NUR ---
PT ARRIVED ON UNIT VIA STRETCHER, ESCORTED BY ER NURSE. TRANSFERRED TO BED AND POSITIONED FOR COMFORT. RE-STARTED IV FLUIDS PER ORDER. PLACED SCD'S PER ORDER. GAVE SHACK OF ICE CREAM AND CRANBERRY JUICE. ORIENTED TO ROOM AND CALL LIGHT. ALL ITEMS WITHIN REACH. SIDE RAILS UP X2 FOR SAFETY.
--- NOTE | 2021-04-15 23:39 | NUR ---
PLACED YELLOW GOWN AND GRIPPER SOCKS ON PT.
[2021-04-15] MEDS ORDERED: CARAFATE1 G/10 ML PO (23:43)
[2021-04-16 00:05] LABS: ERYTHROCYTE SEDIMENTATION RATE 90 mm/hr (0-30)
[2021-04-16 00:18] VITALS: BP 130/78; Ht 160 cm; Wt 109.1 kg
[2021-04-16 04:00] VITALS: BP 129/77; BP 162/75
[2021-04-16 06:31] LABS: APTT 30.8 SECONDS (22.8-39.4); INR 1.04 (0.85-1.17); PROTIME 12.6 SECONDS (11.6-15.0)
[2021-04-16 06:33] LABS: BASOPHILS 0.4 % (0-2); HEMATOCRIT 34.6 % (36.0-48.0); HEMOGLOBIN 11.4 g/dL (12-16); LYMPHOCYTES 8.2 % (15-50); MCH 27.4 pg (26.0-34.0); MCV 83.1 fL (80.0-100.0); MEAN PLATELET VOLUME 7.3 fL (7.4-10.4); MONOCYTES 6.2 % (2-11); NEUTROPHILS 83.2 % (40-80); PLATELET COUNT 321 10x3/uL (130-400); RBC 4.17 10x6/uL (4.00-5.40); RDW 16.3 % (11.5-14.5); WBC 5.6 10x3/uL (4.8-10.8)
[2021-04-16 06:54] LABS: ALBUMIN 2.4 g/dL (3.4-5.0); ALKALINE PHOSPHATASE 497 U/L (30-120); CALC OSMOLALITY 274 mosm/kg (275-300); CALCIUM 9.1 mg/dL (8.5-10.1); CARBON DIOXIDE 30.2 mmol/L (21.0-32.0); CHLORIDE - SERUM 99 mmol/L (98-107); CREATINE KINASE 114 UL (21-215); CREATININE - SERUM 0.8 mg/dL (0.6-1.3); GLUCOSE 126 mg/dL (74-106); MAGNESIUM - SERUM 1.4 mg/dL (1.8-2.4); POTASSIUM - SERUM 3.4 mmol/L (3.5-5.1); SODIUM 137 mmol/L (136-145); UREA NITROGEN 10 mg/dL (7-18); eGFR NON AFRICAN AMERICAN 76 mL/min (90-120)
[2021-04-16 07:18] LABS: ALT (SGPT) 170 U/L (10-68)
--- NOTE | 2021-04-16 07:40 | NUR ---
0700 BEDSIDE REPORT RECEIVED FROM HAIDER ROGERS AWAKENED TO VOICE SCDS ON AT THIS TIME
[2021-04-16 08:49] VITALS: BP 173/111
[2021-04-16 11:56] VITALS: BP 149/90
--- NOTE | 2021-04-16 15:33 | EC ---
PATIENT:BHAVIN ENRIQUEZ DATE OF SERVICE: 04/15/21 SEX: F MEDICAL RECORD: [id number] DATE OF : 53 LOCATION:D.[facility] AGE OF PATIENT: 65 ADMISSION DATE: 04/15/21 REFERRING PHYSICIAN: INTERPRETING PHYSICIAN: ERIKA RUBI MD ECHOCARDIOGRAM REPORT ECHO CHARGES 4 ECHO COMPLETE Date: 04/16/21 CLINICAL DIAGNOSIS: DYSPNEA ECHOCARDIOGRAPHIC MEASUREMENTS (adult normal given) AC root (d.<3.7cm) 3.5 cm LV Septum d (<1.2 cm> 1.2 cm Valve Excursion 2.1 cm LV Septum (systole) 1.3 cm Left Atria (s.<4.0cm> 4.3 cm LVPW d(<1.2cm) 0.9 cm RV (d.<2.3cm) 3.4 cm LVPW (sytole) 1.1 cm LV diastole(<5.6CM) 4.8 cm MV E-F(>70mm/sec) cm LV systole 2.6 cm LVOT Diameter 2.0 cm MV exc.(>10mm) cm Est.ejection fraction (50-75%) 55 % DOPPLER: LVIT cm/sec A 112 cm/sec E 52 cm/sec LA cm/sec RVSP 39 mmHg LVOT 109 cm/sec AOP1/2T m/s Asc. Ao 160 cm/sec RVOT 85 cm/sec RA 3.6 cm/sec PA 87 cm/sec AV Gradient Peak 10 mmHg AV Mean 5 mmHg AV Area 2.1 cm MV Gradient Peak 5 mmHg MV Mean 2 mmHg MV Area cm COMMENTS: Director Of Cardiology Service Line: Antoinette LANDRY Die Try Out Worker Stamping: 3 Dr. Haile TAPE# Pericardial Effusion DATE OF SERVICE: CLINICAL DIAGNOSIS: Dyspnea. INTERPRETATION: Technically difficult study, overall normal left ventricular chamber size and contractile function with an ejection fraction of 55% to 60%. FINDINGS: Left atrial chamber appears normal. Right atrium and right ventricular chamber size and function appears normal. Aortic valve not well visualized, but appears normal. No aortic stenosis/regurgitation. Mitral valve ECHOCARDIOGRAM REPORT [id number] BHAVIN ENRIQUEZ appears normal. Mild mitral annular calcification. Mild mitral regurgitation. Tricuspid valve appears normal. Mild tricuspid regurgitation. Pulmonic valve not well visualized. No pulmonic regurgitation noted. No pericardial effusion visualized. IMPRESSION: Technically difficult study, overall normal left ventricular chamber size and contractile function, ejection fraction 55% to 60%. TRANSINT:[id number] Voice Confirmation ID: [id number] DOCUMENT ID: [id number] ERIKA RUBI MD at 1533 CC: [id number] DICTATION DATE: 04/16/21 1503 AIRVEYOR OPERATOR: 04/16/21 1527 ADM IN [place] [id number] [place] [id number]
[2021-04-16 16:31] VITALS: BP 170/68
--- NOTE | 2021-04-16 18:06 | NUR ---
1754 DR CARDOSO HAS SPOKEN WITH PATIENT AND INFORMED HER THAT THEY CANNOT DO HER INFECTED LEFT HIP HERE PT WAS GIVEN OPPORTUNITY TO ASK QUESTIONS DR JOAQUIN AT [facility] IS THE ACCEPTING DR. DR CARDOSO HAS SPOKEN WITH DR JOAQUIN
--- NOTE | 2021-04-16 18:09 | NUR ---
5569 DR CARDOSO HAS SPOKEN WITH PATIENT RE HER HIP PAIN
--- NOTE | 2021-04-16 18:19 | NUR ---
1813 SPOKE WITH WATCH CRYSTAL CUTTER AT [facility], ELENA DAVALOS RE TRANSFER TO [facility] POSSIBLE NO BED THIS SHIFT AND SAID [facility] WILL NOTIFY US WHEN A BED IS READY. DR JOAQUIN IS THE ACCEPTING MD
[2021-04-16 20:00] VITALS: BP 117/62
[2021-04-16 21:24] LABS: SARS-CoV-2 ANTIGEN NEGATIVE- SARS-COV-2 (NEGATIVE)
[2021-04-17] VITALS: BP 119/68
--- NOTE | 2021-04-17 02:38 | NUR ---
[facility] ARRIVED AND ESCORTED PT VIA STRETCHER TO AMBULANCE. PAPERWORK FILLED OUT AND GIVEN. REPORT CALLED TO [facility].
[2021-04-17 10:12] LABS: HEPATITIS C ANTIBODY <0.1 S/CO RAT (0.0-0.9)
== END 2021-04-17 02:41 | disposition short-term general hospital (02) | DRG 561 ==
LOC: D.ER 17:27 → D.MS 22:02
PROVIDERS: Emergency Medicine; Family Medicine; Orthopaedic Surgery; Student in an Organized Health Care Education/Training Program; ADMIT Family Medicine; ATTEND Family Medicine
DX: T84.52XA Infection and inflammatory reaction due to internal left hip prosthesis, initial encounter (principal); E83.42 Hypomagnesemia; I12.9 Hypertensive chronic kidney disease with stage 1 through stage 4 chronic kidney disease, or unspecified chronic kidney disease; E11.22 Type 2 diabetes mellitus with diabetic chronic kidney disease; N18.2 Chronic kidney disease, stage 2 (mild); E11.40 Type 2 diabetes mellitus with diabetic neuropathy, unspecified; D64.9 Anemia, unspecified; E78.5 Hyperlipidemia, unspecified; F41.8 Other specified anxiety disorders; M19.90 Unspecified osteoarthritis, unspecified site; G89.29 Other chronic pain

== ENCOUNTER → 2021-04-30 19:55 | Outpatient (CLI) | payer MEDICARE ==
[2021-04-16 00:18] VITALS: BMI 42.6
[~2021-04-30 19:55] MED LIST changes: +CARAFATE1 G/10 ML PO
[2021-04-30 20:07] LABS: EOSINOPHILS 4.6 % (0-7); HEMATOCRIT 28.5 % (36.0-48.0); HEMOGLOBIN 9.1 g/dL (12-16); LYMPHOCYTES 16.4 % (15-50); MCH 27.3 pg (26.0-34.0); MCHC 31.8 g/dL (31.0-37.0); MEAN PLATELET VOLUME 7.8 fL (7.4-10.4); MONOCYTES 6.6 % (2-11); NEUTROPHILS 71.4 % (40-80); RBC 3.31 10x6/uL (4.00-5.40); RDW 18.4 % (11.5-14.5); WBC 8.5 10x3/uL (4.8-10.8)
[2021-04-30 20:11] LABS: PLATELET COUNT 406 10x3/uL (130-400)
[2021-04-30 20:22] LABS: ALBUMIN 2.2 g/dL (3.4-5.0); BILIRUBIN - DIRECT 0.12 mg/dL (0.00-0.30); BILIRUBIN - INDIRECT 0.02 mg/dL (0.00-1.00); BILIRUBIN - TOTAL 0.14 mg/dL (0.2-1.3); PROTEIN - SERUM 5.8 g/dL (6.4-8.2)
== END | disposition home or self-care (01) ==
LOC: D.LABREF 19:55
PROVIDERS: ATTEND Student in an Organized Health Care Education/Training Program
DX: T84.52XA Infection and inflammatory reaction due to internal left hip prosthesis, initial encounter (principal)

== ENCOUNTER → 2021-05-07 18:10 | Outpatient (CLI) | payer MEDICARE ==
[2021-04-16 00:18] VITALS: BMI 42.6
[2021-05-07 18:33] LABS: BASOPHILS 1.1 % (0-2); EOSINOPHILS 11.1 % (0-7); HEMATOCRIT 27.5 % (36.0-48.0); HEMOGLOBIN 8.8 g/dL (12-16); LYMPHOCYTES 18.5 % (15-50); MCH 28.1 pg (26.0-34.0); MCHC 32.1 g/dL (31.0-37.0); MCV 87.4 fL (80.0-100.0); MEAN PLATELET VOLUME 7.7 fL (7.4-10.4); MONOCYTES 8.1 % (2-11); NEUTROPHILS 61.2 % (40-80); RBC 3.14 10x6/uL (4.00-5.40); RDW 20.5 % (11.5-14.5)
[2021-05-07 18:48] LABS: PLATELET COUNT 279 10x3/uL (130-400)
[2021-05-07 18:52] LABS: BILIRUBIN - DIRECT 0.09 mg/dL (0.00-0.30); BILIRUBIN - INDIRECT 0.07 mg/dL (0.00-1.00); BILIRUBIN - TOTAL 0.16 mg/dL (0.2-1.3); CREATININE - SERUM 0.9 mg/dL (0.6-1.3)
== END | disposition home or self-care (01) ==
LOC: D.LABREF 18:10
DX: Z47.1 Aftercare following joint replacement surgery (principal)

== ENCOUNTER → 2021-05-14 15:37 | Outpatient (CLI) | payer MEDICARE ==
[2021-04-16 00:18] VITALS: BMI 42.6
[2021-05-14 15:51] LABS: BASOPHILS 0.9 % (0-2); EOSINOPHILS 13.4 % (0-7); HEMATOCRIT 29.9 % (36.0-48.0); HEMOGLOBIN 9.6 g/dL (12-16); LYMPHOCYTES 18.3 % (15-50); MCH 27.7 pg (26.0-34.0); MCV 86.6 fL (80.0-100.0); MEAN PLATELET VOLUME 7.4 fL (7.4-10.4); MONOCYTES 8.9 % (2-11); NEUTROPHILS 58.5 % (40-80); PLATELET COUNT 252 10x3/uL (130-400); RBC 3.45 10x6/uL (4.00-5.40); WBC 4.4 10x3/uL (4.8-10.8)
[2021-05-14 15:59] LABS: ALBUMIN 2.1 g/dL (3.4-5.0); BILIRUBIN - DIRECT 0.07 mg/dL (0.00-0.30); BILIRUBIN - INDIRECT 0.17 mg/dL (0.00-1.00); BILIRUBIN - TOTAL 0.24 mg/dL (0.2-1.3); CREATININE - SERUM 0.9 mg/dL (0.6-1.3); PROTEIN - SERUM 6.1 g/dL (6.4-8.2)
== END | disposition home or self-care (01) ==
LOC: D.LABREF 15:37
PROVIDERS: ATTEND Student in an Organized Health Care Education/Training Program
DX: T84.52XA Infection and inflammatory reaction due to internal left hip prosthesis, initial encounter (principal); B95.2 Enterococcus as the cause of diseases classified elsewhere; Z96.89 Presence of other specified functional implants; E11.22 Type 2 diabetes mellitus with diabetic chronic kidney disease